=== PATIENT | male | born 1960 | race Caucasian/White ===

== ENCOUNTER 2018-07-13 17:10 | Inpatient (IN) ==
[2018-07-13] MEDS ORDERED: Morphine Sulfate Inj 2 MG/ML Vial IV.PUSH ONE (21:10)
--- NOTE | 2018-07-13 21:24 | ED ---
HPI General Chief complaint: Back Pain/Injury Stated complaint: back pain Time Seen by Provider: 07/13/18 20:59 History of Present Illness HPI narrative: 57-year-old male presents for evaluation of low back pain and urinary retention. He reports a long-standing history of peripheral neuropathy in the lower extremities for which he is prescribed gabapentin. Over the past several months she has developed worsening pain in his lower back which radiates into the left hip/leg. He had an MRI of the lumbar spine in February which revealed abnormality in the marrow of the left ilium and sacrum concerning for metastatic disease with unknown primary origin. He was seen by oncologist Dr. De Jesus earlier this month and underwent bone marrow biopsy of the abnormality. 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 He has a follow-up appointment with the oncologist on July 18 to discuss results. He reports over the past week he has developed new urinary retention. He reports that initially had some dribbling and then was unable to urinate at all. He was seen at [facility] 2 days ago and had a Rosas catheter placed. He presents today because he has worsening lower back pain over the past day. Pain is aching, constant, not alleviated with use of gabapentin and ibuprofen. He denies any new saddle anesthesia or new of weakness in the legs. He denies any new incontinence of stool. Reports that his last bowel movement was 2 days ago. He has no other complaints. Related Data Home Medications Medication Instructions Recorded Confirmed diazepam 2 mg PO DAILY 07/14/18 07/14/18 gabapentin 900 mg PO TID 07/14/18 07/14/18 hydrocodone-acetaminophen 1 tab PO Q4-6H PRN 07/14/18 07/14/18 phenazopyridine [Pyridium] 200 mg PO TID 07/14/18 07/14/18 Allergies Allergy/AdvReac Type Severity Reaction Status Date / Time VOLTA Allergy Intermediate ITCHING Uncoded 07/13/18 17:48 Review of Systems ROS: all other systems reviewed are negative Exam Narrative Exam Narrative: GENERAL: This is a thin male who appears uncomfortable on examination. SKIN: Warm and dry. HEAD: Atraumatic. Normocephalic. EYES: Pupils equal and round. No scleral icterus. No injection or drainage. ENT: No nasal bleeding or discharge. Mucous membranes pink and moist. NECK: Trachea midline. No JVD. CARDIOVASCULAR: Regular rate and rhythm. No murmur appreciated. RESPIRATORY: No accessory muscle use. Clear to auscultation. Breath sounds equal bilaterally. GASTROINTESTINAL: Abdomen soft, non-tender, nondistended. Hepatic and splenic margins not palpable. Rosas catheter is in place. Rectal examination reveals normal anal sphincter tone, somewhat prominent prostate. Nontender. MUSCULOSKELETAL: No obvious deformities. There is tenderness to palpation to the lumbar spine. 5 out of 5 muscle strength in lower extremities bilaterally. NEUROLOGICAL: Awake and alert. No obvious cranial nerve deficits. Motor grossly within normal limits. Normal speech. Course Initial Documented Vital Signs Temperature 98.0 F 07/13/18 17:41 Pulse Rate 93 H 07/13/18 17:41 Respiratory Rate 20 07/13/18 17:41 Blood Pressure 127/75 07/13/18 17:41 Pulse Oximetry 97 07/13/18 17:41 Last Documented Vital Signs Temperature 98.6 F 07/18/18 04:26 Pulse Rate 88 07/18/18 04:26 Respiratory Rate 17 07/18/18 06:41 Blood Pressure 112/74 07/18/18 04:26 Pulse Oximetry 95 07/18/18 04:26 Medical Decision Making BEV Attestation BEV supervised visit: Yes Attestation: I, Dr. Sauer, have reviewed the advance practice practitioner's documentation and am in agreement, met with the patient face to face, made the diagnosis, and the medical decision making was done by me. *My assessment and Findings: 57-year-old male with diagnosis of likely prostate cancer and back pain with urinary retention. MRI has been ordered to rule out cauda equina. He will be admitted to the hospital for further management. MDM Narrative Medical decision making narrative: Given the patient's worsening back pain and now acute urinary retention, an MRI of the lumbar spine has been ordered. Lab work, urinalysis has been ordered. The patient will be given IV analgesics. labwork imaging studies have been reviewed. MRI results were discussed with the neurosurgeon environmental issues instructor Dr. Cisneros who would like MRIs of the cervical and thoracic spine performed, agrees with admission for oncology consultation and he will be happy to consult as well. Patient has persistent pain despite use of morphine, additional analgesics have been ordered. The patient's urinalysis was positive for nitrites, he will be given a dose of Rocephin. Medical Screen Exam Complete: Yes Emergency Medical Condition: Yes Differential Diagnosis Differential Diagnosis: Metastatic carcinoma versus chronic back pain versus cauda equina syndrome versus conus medullaris versus prostatitis versus obstructive uropathy Lab Data Result diagrams: 07/15/18 07:40 07/15/18 07:40 Lab Results 07/13/18 07/13/18 07/13/18 Range/Units 21:49 21:49 23:35 WBC 7.4 (4.0-11.0) th/mm3 RBC 4.20 L (4.50-5.90) mil/mm3 Hgb 13.1 (13.0-17.0) gm/dL Hct 38.0 L (39.0-51.0) % MCV 90.5 (80.0-100.0) fL MCH 31.1 (27.0-34.0) pg MCHC 34.4 (32.0-36.0) % RDW 15.2 (11.6-17.2) % Plt Count 225 (150-450) th/mm3 MPV 7.0 (7.0-11.0) fL Neut % (Auto) 67.1 (16.0-70.0) % Lymph % (Auto) 22.8 (9.0-44.0) % [place] % (Auto) 5.4 (0.0-8.0) % Eos % (Auto) 4.0 (0.0-4.0) % Baso % (Auto) 0.7 (0.0-2.0) % Neut # (Auto) 5.0 (1.8-7.7) th/mm3 Lymph # (Auto) 1.7 (1.0-4.8) th/mm3 [place] # (Auto) 0.4 (0.0-0.9) th/mm3 Eos # (Auto) 0.3 (0.0-0.4) th/mm3 Baso # (Auto) 0.0 (0.0-0.2) th/mm3 WBC Differential . Differential Comment Auto diff final PT 10.4 (9.8-11.6) sec INR 1.0 Ratio APTT 24.5 (24.3-30.1) sec Sodium 143 (136-145) meq/L Potassium 3.9 (3.5-5.1) meq/L Chloride 109 H (98-107) meq/L Carbon Dioxide 26.8 (21.0-32.0) meq/L Anion Gap 7 (5-15) meq/L BUN 16 (7-18) mg/dL Creatinine 0.90 (0.60-1.30) mg/dL Estimated GFR 87 L (>89) mL/min Random Glucose 93 (74-106) mg/dL Calcium 8.7 (8.5-10.1) mg/dL Total Bilirubin 0.2 (0.2-1.0) mg/dL AST 14 L (15-37) U/L ALT 18 (12-78) U/L Alkaline Phosphatase 221 H (45-117) U/L Total Protein 6.8 (6.4-8.2) g/dL Albumin 3.2 L (3.4-5.0) g/dL Urine Color (Yellw/Straw) Urine Clarity (Clear) Urine pH (5.0-8.5) Ur Specific [place] (1.002-1.035) Urine Protein (Neg-Trace) mg/dL Urine Glucose (UA) (Negative) mg/dL Urine Ketones (Negative) mg/dL Urine Occult Blood (Negative) Urine Nitrate (Negative) Urine Bilirubin (Negative) Urine Urobilinogen (Less than 2) mg/dL Ur Leukocyte Esterase (Negative) Urine RBC (0-3) /hpf Urine WBC (0-5) /hpf Ur Squamous Epith Cells (0-5) /hpf Urine Bacteria (None) /hpf Micro UA Comment Urine Culture Comments Nasal Screen MRSA (PCR) (Negative) 07/13/18 07/15/18 07/15/18 Range/Units 23:50 07:40 07:40 WBC 5.1 (4.0-11.0) th/mm3 RBC 4.10 L (4.50-5.90) mil/mm3 Hgb 12.5 L (13.0-17.0) gm/dL Hct 37.4 L (39.0-51.0) % MCV 91.2 (80.0-100.0) fL MCH 30.6 (27.0-34.0) pg MCHC 33.5 (32.0-36.0) % RDW 14.7 (11.6-17.2) % Plt Count 219 (150-450) th/mm3 MPV 6.6 L (7.0-11.0) fL Neut % (Auto) 57.2 (16.0-70.0) % Lymph % (Auto) 31.3 (9.0-44.0) % [place] % (Auto) 6.4 (0.0-8.0) % Eos % (Auto) 4.6 H (0.0-4.0) % Baso % (Auto) 0.5 (0.0-2.0) % Neut # (Auto) 2.9 (1.8-7.7) th/mm3 Lymph # (Auto) 1.6 (1.0-4.8) th/mm3 [place] # (Auto) 0.3 (0.0-0.9) th/mm3 Eos # (Auto) 0.2 (0.0-0.4) th/mm3 Baso # (Auto) 0.0 (0.0-0.2) th/mm3 WBC Differential . Differential Comment Auto diff final PT (9.8-11.6) sec INR Ratio APTT (24.3-30.1) sec Sodium 142 (136-145) meq/L Potassium 4.0 (3.5-5.1) meq/L Chloride 108 H (98-107) meq/L Carbon Dioxide 27.2 (21.0-32.0) meq/L Anion Gap 7 (5-15) meq/L BUN 12 (7-18) mg/dL Creatinine 0.84 (0.60-1.30) mg/dL Estimated GFR Greater than 89 (>89) mL/min Random Glucose 96 (74-106) mg/dL Calcium 8.4 L (8.5-10.1) mg/dL Total Bilirubin 0.2 (0.2-1.0) mg/dL AST 12 L (15-37) U/L ALT 15 (12-78) U/L Alkaline Phosphatase 199 H (45-117) U/L Total Protein 6.3 L (6.4-8.2) g/dL Albumin 2.8 L (3.4-5.0) g/dL Urine Color [place] (Yellw/Straw) Urine Clarity Clear (Clear) Urine pH 6.0 (5.0-8.5) Ur Specific [place] 1.014 (1.002-1.035) Urine Protein Negative (Neg-Trace) mg/dL Urine Glucose (UA) Negative (Negative) mg/dL Urine Ketones Negative (Negative) mg/dL Urine Occult Blood Moderate H (Negative) Urine Nitrate Positive H (Negative) Urine Bilirubin Negative (Negative) Urine Urobilinogen 4 or greater (Less than 2) mg/dL Ur Leukocyte Esterase Negative (Negative) Urine RBC 21 H (0-3) /hpf Urine WBC 7 H (0-5) /hpf Ur Squamous Epith Cells <1 (0-5) /hpf Urine Bacteria Rare H (None) /hpf Micro UA Comment Cath-culture ind Urine Culture Comments Cath-cult indicated Nasal Screen MRSA (PCR) (Negative) 07/17/18 Range/Units 12:56 WBC (4.0-11.0) th/mm3 RBC (4.50-5.90) mil/mm3 Hgb (13.0-17.0) gm/dL Hct (39.0-51.0) % MCV (80.0-100.0) fL MCH (27.0-34.0) pg MCHC (32.0-36.0) % RDW (11.6-17.2) % Plt Count (150-450) th/mm3 MPV (7.0-11.0) fL Neut % (Auto) (16.0-70.0) % Lymph % (Auto) (9.0-44.0) % [place] % (Auto) (0.0-8.0) % Eos % (Auto) (0.0-4.0) % Baso % (Auto) (0.0-2.0) % Neut # (Auto) (1.8-7.7) th/mm3 Lymph # (Auto) (1.0-4.8) th/mm3 [place] # (Auto) (0.0-0.9) th/mm3 Eos # (Auto) (0.0-0.4) th/mm3 Baso # (Auto) (0.0-0.2) th/mm3 WBC Differential Differential Comment PT (9.8-11.6) sec INR Ratio APTT (24.3-30.1) sec Sodium (136-145) meq/L Potassium (3.5-5.1) meq/L Chloride (98-107) meq/L Carbon Dioxide (21.0-32.0) meq/L Anion Gap (5-15) meq/L BUN (7-18) mg/dL Creatinine (0.60-1.30) mg/dL Estimated GFR (>89) mL/min Random Glucose (74-106) mg/dL Calcium (8.5-10.1) mg/dL Total Bilirubin (0.2-1.0) mg/dL AST (15-37) U/L ALT (12-78) U/L Alkaline Phosphatase (45-117) U/L Total Protein (6.4-8.2) g/dL Albumin (3.4-5.0) g/dL Urine Color (Yellw/Straw) Urine Clarity (Clear) Urine pH (5.0-8.5) Ur Specific [place] (1.002-1.035) Urine Protein (Neg-Trace) mg/dL Urine Glucose (UA) (Negative) mg/dL Urine Ketones (Negative) mg/dL Urine Occult Blood (Negative) Urine Nitrate (Negative) Urine Bilirubin (Negative) Urine Urobilinogen (Less than 2) mg/dL Ur Leukocyte Esterase (Negative) Urine RBC (0-3) /hpf Urine WBC (0-5) /hpf Ur Squamous Epith Cells (0-5) /hpf Urine Bacteria (None) /hpf Micro UA Comment Urine Culture Comments Nasal Screen MRSA (PCR) Not detected (Negative) Imaging Data Radiologist's impression: Lumbar Spine MRI 07/13/18 21:08 CONCLUSION: 1. Progression of bone lesions including lesions at the bilateral iliac bones, T12, L5, S1, and S2 levels. Metastatic lesions need to be considered. The patient has underwent bone biopsy. 2. Minimal central disc protrusions at the L3-L4 and L4-L5 levels without significant stenosis. 3. Decreased signal in the disc with the exception of the L5-S1 level consistent with some degree of desiccation. Abdomen/Pelvis CT 07/14/18 00:00 CONCLUSION: 1. Distended stomach. 2. 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 Chest CT 07/14/18 00:00 CONCLUSION: 1. Stable CT examination of the chest. No interval change from 05/22/2018. 2. Specifically, no evidence for metastatic disease in the thorax. 3. Biapical paraseptal emphysema and groundglass opacities in the lower lobes bilaterally likely reflecting atelectasis. Cervical Spine MRI 07/14/18 01:16 CONCLUSION: 1. Multilevel degenerative findings of the cervical spine with mild central canal narrowing at C4-5, C5-6, and C6-7. No evidence of spinal cord deformity. 2. No evidence of metastatic disease in the cervical region. Thoracic Spine MRI 07/14/18 01:16 CONCLUSION: 1. Mild degenerative findings of the thoracic spine. 2. No evidence of metastatic disease in the thoracic spine. 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 Fracture of the posterior left ilium which may reflect insufficiency fracture. Discharge Plan Discharge Disposition Patient Disposition: 30 Still Patient Discharge Condition Condition: Stable Discharge Details Diagnosis: Bony metastasis, Intractable back pain, Acute urinary retention Physicians Team ED Provider: Mila Sauer ED Midlevel Provider: Simone Sinha Primary Care Provider: NON STAFF,PROVIDER Attending Provider: Brandy Warren Other Providers: Josi Wilson ; Kosta Cisneros ; [facility], Insurance ; Oswald Esquivel ; Winter De Jesus Status ED Status: Left Department Discharge Information Discharge Date/Time: 07/14/18 02:05
[2018-07-13 22:13] LABS: Alanine Aminotransferase 18 U/L (12-78); Albumin 3.2 g/dL (3.4-5.0); Anion Gap 7 meq/L (5-15); Aspartate Aminotransferase 14 U/L (15-37); Blood Urea Nitrogen 16 mg/dL (7-18); Calcium 8.7 mg/dL (8.5-10.1); Carbon Dioxide 26.8 meq/L (21.0-32.0); Chloride 109 meq/L (98-107); Glomerular Filtration Rate 87 mL/min (>89); Glucose,Random 93 mg/dL (74-106); Potassium 3.9 meq/L (3.5-5.1); Sodium 143 meq/L (136-145)
[2018-07-13 22:15] LABS: Alkaline Phosphatase 221 U/L (45-117); Total Protein 6.8 g/dL (6.4-8.2)
[2018-07-13 22:19] LABS: Baso % (Auto) 0.7 % (0.0-2.0); Eos # (Auto) 0.3 th/mm3 (0.0-0.4); Hemoglobin 13.1 gm/dL (13.0-17.0); Lymph # (Auto) 1.7 th/mm3 (1.0-4.8); Lymph % (Auto) 22.8 % (9.0-44.0); Mean Corpuscular HGB Conc 34.4 % (32.0-36.0); Mean Corpuscular Hemoglobin 31.1 pg (27.0-34.0); Mean Corpuscular Volume 90.5 fL (80.0-100.0); Mono # (Auto) 0.4 th/mm3 (0.0-0.9); Mono % (Auto) 5.4 % (0.0-8.0); Neut % (Auto) 67.1 % (16.0-70.0); Platelet Count 225 th/mm3 (150-450); Red Cell Distribution Width 15.2 % (11.6-17.2); White Blood Count 7.4 th/mm3 (4.0-11.0)
[2018-07-13] MEDS ORDERED: Gadobutrol PF 7.5 MMOL/7.5 ML Vial (for RAD) IV.SIG ONE (23:11)
--- NOTE | 2018-07-13 23:42 | MR ---
EXAM DATE: 07/13/2018 11:18 PM EDT AGE/SEX: 57 years / Male INDICATIONS: Pain. Possible prostate cancer. CLINICAL DATA: This is the patient's initial encounter. Patient reports that signs and symptoms have been present for 2 months and indicates a pain score of 8/10. MEDICAL/SURGICAL HISTORY: . Skin cancer. . Hernia sx. COMPARISON: [facility], MR LUMBAR SPINE W/O CONTRAST, 03/08/2018. [facility], CT NEEDLE BIOPSY BONE MARROW, 07/05/2018. [facility], CT ABDOMEN AND PELVIS W/ CONTRAST, 05/22/2018. [facility], CT NEEDLE BIOPSY BONE SUPERFICIAL, 07/05/2018. . TECHNIQUE: Multiplanar, multisequence MRI examination of the lumbar spine was performed without and with 6 ml Gadavist (gadobutrol) contrast as a single exam dose. FINDINGS: The most caudal-appearing lumbar vertebra is numbered as L5. Vertebra: There is abnormal signal seen throughout the visualized sacrum. This appears to have progr essed since the prior exam. On the prior exam, there is abnormal signal in the inferior aspect of S2 and at the visualized portion of the S3 level. Now the S1 level and entire S2 levels are involved. S3 is not included on the current study. There are focal lesions involving the posterior iliac bones bi laterally being more prominent on the left. There are new focal bone lesion seen at the T12 vertebral body and 2 lesions seen at the L5 vertebral bodies. There is a lesion involving the left L5 pedicle. These were not present on the prior exam. There are prominent Schmorl's nodes at the anterior superi or aspect of L3, L4 and L5. There is decreased signal within the discs with the exception of the L5-S 1 level. Conus: Normal level and configuration. Post Contrast: No abnormal areas of contrast enhancement are seen. T12-L1: The thecal sac has a normal diameter. No evidence of disc bulge or protrusion. The neural foramina are patent bilaterally. L1-L2: The thecal sac has a normal diameter. No evidence of disc bulge or protrusion. The neural foramina are patent bilaterally. L2-L3: The thecal sac has a normal diameter. No evidence of disc bulge or protrusion. The neural foramina are patent bilaterally. L3-L4: The thecal sac has a normal diameter. There is a minimal central disc protrusion seen on th e axial images without significant stenosis. The neural foramina are patent bilaterally. L4-L5: The thecal sac has a normal diameter. There is a minimal central disc protrusion without si gnificant stenosis. The neural foramina are patent bilaterally. L5-S1: The thecal sac has a normal diameter. No evidence of disc bulge or protrusion. The neural foramina are patent bilaterally. There is mild facet hypertrophy. CONCLUSION: 1. Progression of bone lesions including lesions at the bilateral iliac bones, T12, L5, S1, and S2 l evels. Metastatic lesions need to be considered. The patient has underwent bone biopsy. 2. Minimal central disc protrusions at the L3-L4 and L4-L5 levels without significant stenosis. 3. Decreased signal in the disc with the exception of the L5-S1 level consistent with some degree of desiccation. Electronically signed by: Olegario Vargas MD 07/13/2018 11:40 PM EDT
[2018-07-14 00:11] LABS: Bacteria,Urine Rare /hpf; Bilirubin,Urine Negative (Negative); Clarity,Urine Clear (Clear); Color,Urine Amber (Yellw/Straw); Glucose,Urine (UA) Negative (Negative); Leukocyte Esterase,Urine Negative (Negative); Nitrite,Urine Positive (Negative); Specific Gravity,Urine 1.014 (1.002-1.035); Squamous Epithelial Cell,Urine <1 /hpf (0-5); Urobilinogen,Urine 4 or Greater mg/dL (Less than 2)
[2018-07-14 00:12] LABS: Activated Partial Thrombo Time 24.5 sec (24.3-30.1); Prothrombin Time 10.4 sec (9.8-11.6)
[2018-07-14] MEDS ORDERED: HYDROmorphone PF Inj 0.5 MG/0.5 ML Syringe IV.PUSH STA (01:18)
[2018-07-14] MEDS ORDERED: Acetaminophen 325 MG Tablet PO PRN (01:29)
[2018-07-14] MEDS ORDERED: Bisacodyl 10 MG Supp RECTAL PRN (01:29)
[2018-07-14] MEDS ORDERED: Temazepam 15 MG Capsule PO PRN (01:29)
[2018-07-14] MEDS: diazePAM 5 MG Tablet PO PRN (02:10)
[2018-07-14] MEDS: Sod Chloride 0.9% Inj 1,000 ML IV.CONT SCH ×3 (02:39→22:39)
--- NOTE | 2018-07-14 02:41 | P.HPIM ---
History of Present Illness Primary Care Physician: PROVIDER NON STAFF History of Present Illness: Is a 57-year-old male with a PMH of Prostate CA and Peripheral Neuropathy who presented to the ER w/ complaints of severe back pain. States pain has been ongoing for several months, now more severe over the last 2-3 days in addition to urinary retention. Was seen at 2 days ago for urinary retention, s/p Rosas placement and was d/c'd home. Follows w/ Dr. De Jesus, PSA 150, MRI w/ abnormal marrow signal left posterior iliac wing and sacrum suspicious for metastatic disease, CT Abd/Pelvis 06/21/18 w/ progression to right medial acetabulum, left sacrum, coccyx and portions of posterior iliac wing. S/p Bone Marrow and Ilial Biopsy 07/05/18, Pathology Report showing metastatic prostate adenocarcinoma. On arrival, BP 127/75, HR 93, O2 sat 97% on RA, Afebrile. CBC unremarkable. INR 1.0. Chemistry essentially unremarkable. UA positive for UTI. MRI L-spine with progression of bone lesions including lesions at bilateral iliac bones, T12, L5, S1 and S2 and multiple levels of disc protrusion. Dr. Cisneros consulted, recommended further eval w/ MRI C/T-Spine. - Diagnosis (1) Intractable back pain (2) Prostate cancer (3) UTI (urinary tract infection) Inpatient Certification: I certify that the inpatient services were ordered in accordance with Medicare regulations governing the order. This includes certification that hospital inpatient services are reasonable and necessary and in the case of services not specified as inpatient-only under 42 CFR 419.22(n), that they are appropriately provided as inpatient services in accordance to with the 2-midnight benchmark under 43 CFR 412.3(e) Review of Systems PAST FAMILY HISTORY: Reviewed. No h/o DM or CAD All other systems reviewed negative except as stated in HPI PMFSH - History History Provided By: Patient - Medical History Medical History: Medical History (Last Updated 07/13/18 @ 22:43 by Taylor Hunter) Colon polyps Degenerative disc disease Peripheral neuropathy - Surgical History Surgical History: Surgical History (Last Updated 07/05/18 @ 07:45 by Yolande Amaya RN) History of hernia repair - Tobacco History Second Hand Smoke Exposure: Yes Tobacco Use In Past 30 Days: No Smoking Status: Current every day smoker Tobacco Type: Cigarettes - Alcohol History How Often Do You Have a Drink Containing Alcohol: Monthly or less - Substance Use History Substance History: No History of Abuse - Travel History Recent Travel in the [place] Within the Last 8 Weeks: No Recent Travel Out of the Country Within the Last 8 Weeks: No - Immunization History Tetanus Immunization: <5 Years Hx Influenza Vaccine This Season: No Medications and Allergies Active Medications: Active Medications Acetaminophen (Tylenol) 650 mg PO Q4H PRN PRN Reason: Temp > 100.4 Hydrocodone Bitart/Acetaminophen (Drifting 5/325) 1 tab PO Q4H PRN PRN Reason: PAIN 3-5 Al Hydroxide/Mg Hydroxide (Milk Of Magnesia Liq) 30 ml PO Q12H PRN PRN Reason: Mild Constipation Bisacodyl (Dulcolax Supp) 10 mg RECTAL DAILY PRN PRN Reason: SEVERE CONSITIPATION Diazepam (Valium) 5 mg PO Q8H PRN PRN Reason: MUSCLE SPASM Last Admin: 07/14/18 02:10 Dose: 5 mg Gabapentin (Neurontin) 900 mg PO TID MERRITT Gabapentin (Neurontin) 300 mg PO TID MERRITT Hydromorphone HCl (Dilaudid Pf Inj) 1 mg IV.PUSH Q4H PRN PRN Reason: PAIN 6-10 Ceftriaxone Sodium 1,000 mg/ (Sodium Chloride) 100 mls @ 200 mls/hr IV.SIG Q24H MERRITT Sodium Chloride (Ns Inj) 1,000 mls @ 100 mls/hr IV.CONT .Q10H MERRITT Lactulose (Lactulose Liq) 30 ml PO DAILY PRN PRN Reason: SEVERE CONSITIPATION Ondansetron HCl (Zofran Inj) 4 mg IV.PUSH Q6H PRN PRN Reason: NAUSEA OR VOMITING Phenazopyridine HCl (Pyridium) 200 mg PO TID MERRITT Senna/Docusate Sodium (Destinee-Colace) 1 tab PO BID MERRITT Sennosides (Senokot) 17.2 mg PO Q12H PRN PRN Reason: Moderate Constipation Sodium Chloride (Ns Flush) 2 ml IV.FLUSH PRN PRN PRN Reason: FLUSH AFTER USING IV ACCESS Temazepam (Restoril) 15 mg PO HS PRN PRN Reason: INSOMNIA Allergies Allergy/AdvReac Type Severity Reaction Status Date / Time VOLTA Allergy Intermediate ITCHING Uncoded 07/13/18 17:48 Home Medications Medication Instructions Recorded Confirmed Type diazepam 2 mg PO DAILY 07/14/18 07/14/18 History gabapentin 900 mg PO TID 07/14/18 07/14/18 History hydrocodone-acetaminophen 1 tab PO Q4-6H PRN 07/14/18 07/14/18 History phenazopyridine [Pyridium] 200 mg PO TID 07/14/18 07/14/18 History Exam Vital signs: Vital Signs 07/13/18 17:41 Temperature 98.0 F Pulse Rate 93 H Respiratory Rate 20 Blood Pressure 127/75 Pulse Oximetry 97 Intake & Output 07/13/18 07/13/18 07/14/18 06:59 18:59 06:59 Output Total 300 / 300 Balance -300 / -300 Weight 60.328 kg Output: Urine Amount (Catheter) 300 / 300 Indwelling Urethral Catheter 300 / 300 Narrative: PE: GENERAL: Middle-aged white male in moderate to severe distress due to pain, appears very uncomfortable HEENT: PERRLA, EOMI. No scleral icterus or conjunctival pallor. No lid lag or facial droop. CARDIOVASCULAR: Regular rate and rhythm. No obvious murmurs to auscultation. No chest tenderness to palpation. RESPIRATORY: No obvious rhonchi or wheezing. Clear to auscultation. Breath sounds equal bilaterally. GASTROINTESTINAL: Abdomen soft, non-tender, nondistended. BS normal. Rosas in place. MUSCULOSKELETAL: Extremities without clubbing, cyanosis, or edema. No obvious deformities. NEUROLOGICAL: Awake, alert and oriented x4. No focal neurologic deficits. Moving both upper and lower extremities spontaneously. Results - Labs CBC & Chem 7: 07/13/18 21:49 07/13/18 21:49 Labs: Short CBC 07/13/18 Range/Units 21:49 WBC 7.4 (4.0-11.0) th/mm3 Hgb 13.1 (13.0-17.0) gm/dL Hct 38.0 L (39.0-51.0) % Plt Count 225 (150-450) th/mm3 BMP 07/13/18 21:49 Sodium 143 Potassium 3.9 Chloride 109 H Carbon Dioxide 26.8 BUN 16 Creatinine 0.90 Calcium 8.7 Liver Function 07/13/18 Range/Units 21:49 Total Bilirubin 0.2 (0.2-1.0) mg/dL AST 14 L (15-37) U/L ALT 18 (12-78) U/L Alkaline Phosphatase 221 H (45-117) U/L Albumin 3.2 L (3.4-5.0) g/dL Urine 07/13/18 Range/Units 23:50 Urine Color Emelia (Yellw/Straw) Urine Clarity Clear (Clear) Urine pH 6.0 (5.0-8.5) Ur Specific [place] 1.014 (1.002-1.035) Urine Protein Negative (Neg-Trace) mg/dL Urine Glucose (UA) Negative (Negative) mg/dL - Imaging Impressions Lumbar Spine MRI 07/13/18 21:08 CONCLUSION: 1. Progression of bone lesions including lesions at the bilateral iliac bones, T12, L5, S1, and S2 levels. Metastatic lesions need to be considered. The patient has underwent bone biopsy. 2. Minimal central disc protrusions at the L3-L4 and L4-L5 levels without significant stenosis. 3. Decreased signal in the disc with the exception of the L5-S1 level consistent with some degree of desiccation. Caprini VTE Risk Assessment Caprini VTE Risk Assessment: No/Low Risk (score <= 1) Caprini Risk Assessment Model: Point Value = 1 Point Value = 2 Point Value = 3 Point Value = 5 Age 41-60 Minor surgery BMI > 25 kg/m2 Swollen legs Varicose veins or History of unexplained or recurrent spontaneous Oral contraceptives or hormone replacement Sepsis (< 1 month) Serious lung disease, including pneumonia (< 1 month) Abnormal pulmonary function Acute myocardial infarction Congestive heart failure (< 1 month) History of inflammatory bowel disease Medical patient at bed rest Age 61-74 Arthroscopic surgery Major open surgery (> 45 min) Laparoscopic surgery (> 45 min) Malignancy Confined to bed (> 72 hours) Immobilizing plaster cast Central venous access Age >= 75 History of VTE Family history of VTE Factor V Leiden Prothrombin [id number] Lupus anticoagulant Anticardiolipin antibodies Elevated serum homocysteine Heparin-induced thrombocytopenia Other congenital or acquired thrombophilia Stroke (< 1 month) Elective arthroplasty Hip, pelvis, or leg fracture Acute spinal cord injury (< 1 month) Prophylaxis Regimen: Total Risk Factor Score Risk Level Prophylaxis Regimen 0-1 Low Early ambulation 2 Moderate Order ONE of the following: *Sequential Compression Device (SCD) *Heparin 5000 units SQ BID 3-4 Higher Order ONE of the following medications: *Heparin 5000 units SQ TID *Enoxaparin/Lovenox 40 mg SQ daily (WT < 150 kg, CrCl > 30 mL/min) *Enoxaparin/Lovenox 30 mg SQ daily (WT < 150 kg, CrCl > 10-29 mL/min) *Enoxaparin/Lovenox 30 mg SQ BID (WT < 150 kg, CrCl > 30 mL/min) AND/OR *Sequential Compression Device (SCD) 5 or more Highest Order ONE of the following medications: *Heparin 5000 units SQ TID (Preferred with Epidurals) *Enoxaparin/Lovenox 40 mg SQ daily (WT < 150 kg, CrCl > 30 mL/min) *Enoxaparin/Lovenox 30 mg SQ daily (WT < 150 kg, CrCl > 10-29 mL/min) *Enoxaparin/Lovenox 30 mg SQ BID (WT < 150 kg, CrCl > 30 mL/min) AND *Sequential Compression Device (SCD) Assessment and Plan - Assessment (1) Intractable back pain Code(s): M54.9 - Dorsalgia, unspecified Status: Acute (2) Prostate cancer Code(s): C61 - Malignant neoplasm of prostate Status: Acute (3) UTI (urinary tract infection) Code(s): N39.0 - Urinary tract infection, site not specified Status: Acute - Plan A/P: 1. Prostate CA: w/ Metastatic Disease, s/p BM and Ilial biopsy 07/05/18 w/ pathology showing Metastatic Prostate Adenocarcinoma, following w/ Dr. De Jesus, will consult for further evaluation/recommendations. 2. Intractable Pain: secondary to above, MRI L-Spine w/ progression of bone lesions bilateral iliac bones, T12, L5, S1 and S2. Dr. Cisneros consulted, recommendation for MRI C/T-Spine, currently pending. Continue w/ analgesics, Valium prn for muscle spasm, Neurontin tid for radiculopathy. 3. UTI: U/a w/ UTI, continue IV Rocephin, IVF for hydration, follow up cultures. 4. DVT Prophylaxis: SCD/Teds 5. Social work for d/c planning as needed 6. Case discussed w/ ER physician at length, labs/records/imaging reviewed by me.
[2018-07-14] MEDS: HYDROmorphone PF Inj 2 MG/ML Vial IV.PUSH PRN ×4 (03:22→19:37)
[2018-07-14] MEDS ORDERED: Gadobutrol PF 7.5 MMOL/7.5 ML Vial (for RAD) IV.SIG ONE (08:22)
--- NOTE | 2018-07-14 08:22 | P.CONNS ---
History of Present Illness Service: Neurosurgery Primary Care Provider: PROVIDER NON STAFF Chief Complaint: Back pain History of Present Illness: 57yoM with back pain with recent diagnosis of prostate cancer, urinary retention x 2 visits to in last week. Bony mets detected on MRI L-spine but none in the canal. He also has involvement of bilateral sacrum. No weakness, but some pain when arising to stand. PMFSH - History History Provided By: Patient - Medical History Medical History: Medical History (Last Reviewed 07/14/18 @ 06:34 by Cassy German) Colon polyps Degenerative disc disease Peripheral neuropathy - Surgical History Surgical History: Surgical History (Last Reviewed 07/14/18 @ 06:34 by Cassy German) History of hernia repair - Tobacco History Second Hand Smoke Exposure: Yes Tobacco Use In Past 30 Days: Yes Smoking Status: Current every day smoker Tobacco Type: Cigarettes - Alcohol History How Often Do You Have a Drink Containing Alcohol: Never - Substance Use History Substance History: No History of Abuse - Travel History Recent Travel in the [place] Within the Last 8 Weeks: No Recent Travel Out of the Country Within the Last 8 Weeks: No - Immunization History Tetanus Immunization: <5 Years Hx Influenza Vaccine This Season: No Medications and Allergies Active Medications: Active Medications Acetaminophen (Tylenol) 650 mg PO Q4H PRN PRN Reason: Temp > 100.4 Hydrocodone Bitart/Acetaminophen ([place] 5/325) 1 tab PO Q4H PRN PRN Reason: PAIN 3-5 Al Hydroxide/Mg Hydroxide (Milk Of Magnzane Liq) 30 ml PO Q12H PRN PRN Reason: Mild Constipation Bisacodyl (Dulcolax Supp) 10 mg RECTAL DAILY PRN PRN Reason: SEVERE CONSITIPATION Diazepam (Valium) 5 mg PO Q8H PRN PRN Reason: MUSCLE SPASM Last Admin: 07/14/18 02:10 Dose: 5 mg Gabapentin (Neurontin) 900 mg PO TID MERRITT Gabapentin (Neurontin) 300 mg PO TID MERRITT Hydromorphone HCl (Dilaudid Pf Inj) 1 mg IV.PUSH Q4H PRN PRN Reason: PAIN 6-10 Last Admin: 07/14/18 07:22 Dose: 1 mg Ceftriaxone Sodium 1,000 mg/ (Sodium Chloride) 100 mls @ 200 mls/hr IV.SIG Q24H MERRITT Sodium Chloride (Ns Inj) 1,000 mls @ 100 mls/hr IV.CONT .Q10H MERRITT Last Admin: 07/14/18 02:39 Dose: 100 mls/hr Lactulose (Lactulose Liq) 30 ml PO DAILY PRN PRN Reason: SEVERE CONSITIPATION Ondansetron HCl (Zofran Inj) 4 mg IV.PUSH Q6H PRN PRN Reason: NAUSEA OR VOMITING Phenazopyridine HCl (Pyridium) 200 mg PO TID MERRITT Senna/Docusate Sodium (Destinee-Colace) 1 tab PO BID MERRITT Sennosides (Senokot) 17.2 mg PO Q12H PRN PRN Reason: Moderate Constipation Sodium Chloride (Ns Flush) 2 ml IV.FLUSH PRN PRN PRN Reason: FLUSH AFTER USING IV ACCESS Temazepam (Restoril) 15 mg PO HS PRN PRN Reason: INSOMNIA Last Admin: 07/14/18 02:40 Dose: 15 mg Allergies Allergy/AdvReac Type Severity Reaction Status Date / Time VOLTA Allergy Intermediate ITCHING Uncoded 07/13/18 17:48 Home Medications Medication Instructions Recorded Confirmed Type diazepam 2 mg PO DAILY 07/14/18 07/14/18 History gabapentin 900 mg PO TID 07/14/18 07/14/18 History hydrocodone-acetaminophen 1 tab PO Q4-6H PRN 07/14/18 07/14/18 History phenazopyridine [Pyridium] 200 mg PO TID 07/14/18 07/14/18 History Exam Vital signs: Vital Signs 07/13/18 17:41 07/14/18 04:00 07/14/18 07:17 Temperature 98.0 F 97.8 F 98.7 F Pulse Rate 93 H 79 74 Respiratory Rate 20 16 18 Blood Pressure 127/75 120/72 130/83 Pulse Oximetry 97 94 L 98 Intake & Output 07/13/18 07/14/18 07/14/18 18:59 06:59 18:59 Intake Total 580 / 580 Output Total 1100 / 1100 Balance -520 / -520 Weight 60.328 kg 60.328 kg Intake: IV 100 / 100 Rocephin Inj 1,000 MG In NS Inj 100 / 100 100 ML @ 200 mls/hr IV.SIG ONCE ONE Rx#:[id number] Oral 480 / 480 Output: Urine 800 / 800 Urine Amount (Catheter) 300 / 300 Indwelling Urethral Catheter 300 / 300 Other: Weight On Admission 60.33 kg Narrative: A&O x 3 CN II-XII intact Motor 5/5 UE and LE Reflexes symmetric physiologic Results - Laboratory Findings CBC and BMP: 07/13/18 21:49 07/13/18 21:49 Abnormal lab findings: Abnormal Labs 07/13/18 07/13/18 07/13/18 21:49 21:49 23:50 RBC 4.20 L Hct 38.0 L Chloride 109 H Estimated GFR 87 L AST 14 L Alkaline Phosphatase 221 H Albumin 3.2 L Urine Occult Blood Moderate H Urine Nitrate Positive H Urine RBC 21 H Urine WBC 7 H Urine Bacteria Rare H Assessment and Plan - Plan 57yoM with newly diagnosed prostate cancer and spine/ilium mets. Recommend MRI C/T-spine. L-spine xrays ap/lat/flex/ex. No role for surgery in the spine. Urinary retention is not due to spinal canal compromise, may be due to prostate issue. Oncology and Radiation Oncology.
--- NOTE | 2018-07-14 08:33 | MR ---
EXAM DATE: 07/14/2018 8:25 AM EDT AGE/SEX: 57 years / Male INDICATIONS: Pain. Possible prostate cancer. CLINICAL DATA: This is the patient's initial encounter. Patient reports that signs and symptoms have been present for 2 days and indicates a pain score of 6/10. MEDICAL/SURGICAL HISTORY: Carcinoma, skin cancer. Inguinal hernia repair. COMPARISON: No prior exams available for comparison. TECHNIQUE: Multiplanar, multisequence MRI of the thoracic spine was performed without and with 6cc m l Gadavist (gadobutrol) contrast as a single exam dose. FINDINGS: Vertebrae: Schmorl's nodes at multiple levels with mild associated endplate bony changes. Bone marro w signal is otherwise homogeneous and within normal limits. Alignment: Normal. Cord: Normal position and configuration. Post Contrast: No abnormal areas of enhancement are seen in the cord, dural or paraspinal regions. T1-T2: The thecal sac has a normal diameter. No evidence of disc bulge or protrusion. T2-T3: The thecal sac has a normal diameter. No evidence of disc bulge or protrusion. T3-T4: The thecal sac has a normal diameter. No evidence of disc bulge or protrusion. T4-T5: The thecal sac has a normal diameter. No evidence of disc bulge or protrusion. T5-T6: The thecal sac has a normal diameter. No evidence of disc bulge or protrusion. T6-T7: Small central disc protrusion deforming the anterior thecal sac. Central canal diameter withi n normal limits. Neural foraminal diameters within normal limits. T7-T8: The thecal sac has a normal diameter. No evidence of disc bulge or protrusion. T8-T9: The thecal sac has a normal diameter. No evidence of disc bulge or protrusion. T9-T10: The thecal sac has a normal diameter. No evidence of disc bulge or protrusion. T10-T11: The thecal sac has a normal diameter. No evidence of disc bulge or protrusion. T11-T12: The thecal sac has a normal diameter. No evidence of disc bulge or protrusion. T12-L1: The thecal sac has a normal diameter. No evidence of disc bulge or protrusion. CONCLUSION: 1. Mild degenerative findings of the thoracic spine. 2. No evidence of metastatic disease in the thoracic spine. Electronically signed by: Terrell Clarke MD 07/14/2018 8:32 AM EDT
--- NOTE | 2018-07-14 08:49 | MR ---
EXAM DATE: 07/14/2018 8:32 AM EDT AGE/SEX: 57 years / Male INDICATIONS: Pain. Possible prostate cancer. CLINICAL DATA: This is the patient's initial encounter. Patient reports that signs and symptoms have been present for 2 days and indicates a pain score of 6/10. MEDICAL/SURGICAL HISTORY: Carcinoma, skin cancer. Inguinal hernia repair. COMPARISON: No prior exams available for comparison. TECHNIQUE: Multiplanar, multisequence MRI examination of the cervical spine was performed without an d with 6cc ml Gadavist (gadobutrol) contrast as a single exam dose. FINDINGS: Vertebrae: Normal vertebral body height. Homogeneous marrow signal. Alignment: Normal. Cord: Normal configuration and signal. Post Fossa: The cerebellar tonsils are normal in position. Post Contrast: No abnormal areas of enhancement are seen. C2-C3: Bilateral facet arthrosis. Central canal diameter within normal limits. Neural foraminal diam eters within normal limits. C3-C4: Broad-based disc osteophyte complex and bilateral facet arthrosis. Central canal diameter wit hin normal limits. Neural foraminal diameters within normal limits. C4-C5: Broad-based disc osteophyte complex and bilateral facet arthrosis. Mild left neural foraminal narrowing. Effacement of the CSF anteriorly. Posteriorly CSF remains visible. No spinal cord deformi ty. C5-C6: Broad-based disc osteophyte complex. Effacement of CSF anteriorly and posteriorly. No spinal cord deformity. Mild left neural foraminal narrowing. C6-C7: Broad-based disc osteophyte complex. Effacement of the CSF anteriorly. Posteriorly CSF remain s visible. No spinal cord deformity. Neural foraminal diameters within normal limits. C7-T1: Macro normal diameter CONCLUSION: 1. Multilevel degenerative findings of the cervical spine with mild central canal narrowing at C4-5, C5-6, and C6-7. No evidence of spinal cord deformity. 2. No evidence of metastatic disease in the cervical region. Electronically signed by: Terrell Clarke MD 07/14/2018 8:48 AM EDT
[2018-07-14] MEDS ORDERED: Gabapentin 300 MG Capsule PO SCH (09:00)
[2018-07-14] MEDS ORDERED: diazePAM 2 MG Tablet PO SCH (09:00)
[2018-07-14] MEDS ORDERED: oxyCODONE/Acetaminophen 10/325 Tablet PO PRN (09:42)
[2018-07-14] MEDS ORDERED: Morphine Sulfate 30 MG SR Tablet PO ONE (09:43)
[2018-07-14] MEDS ORDERED: HYDROmorphone PF Inj 2 MG/ML Vial IV.PUSH ONE (09:43)
[2018-07-14] MEDS ORDERED: Naloxone Inj 0.4 MG/ML Vial IV.PUSH PRN (09:44)
[2018-07-14] MEDS: Gabapentin 300 MG Capsule PO SCH ×3 (09:50→19:46)
[2018-07-14] MEDS: Senna/Docusate Sodium 8.6/50 MG Tablet PO SCH ×2 (09:50→22:39)
--- NOTE | 2018-07-14 13:39 | P.PNNS ---
Subjective Interval history: 57 yo M with PMH of prostate CA admitted for urinary retention. Neurosurgery consulted for possible surgical cause of urinary retention Physical Exam Vital signs: Vital Signs 07/13/18 17:41 07/14/18 04:00 07/14/18 07:17 Temperature 98.0 F 97.8 F 98.7 F Pulse Rate 93 H 79 74 Respiratory Rate 20 16 18 Blood Pressure 127/75 120/72 130/83 Pulse Oximetry 97 94 L 98 07/14/18 09:03 07/14/18 12:03 Temperature 96.8 F L 98.6 F Pulse Rate 72 76 Respiratory Rate 20 20 Blood Pressure 189/62 H 150/90 H Pulse Oximetry 96 96 Intake & Output 07/13/18 07/14/18 07/14/18 18:59 06:59 18:59 Intake Total 580 / 580 881 / 881 Output Total 1100 / 1100 Balance -520 / -520 881 / 881 Weight 60.328 kg 60.328 kg Intake: IV 100 / 100 881 / 881 NS Inj 1,000 ML @ 100 mls/hr IV 881 / 881 .CONT .Q10H MERRITT Rx#:[id number] Rocephin Inj 1,000 MG In NS Inj 100 / 100 100 ML @ 200 mls/hr IV.SIG ONCE ONE Rx#:[id number] Oral 480 / 480 Output: Urine 800 / 800 Urine Amount (Catheter) 300 / 300 Indwelling Urethral Catheter 300 / 300 Other: Weight On Admission 60.33 kg Narrative: E4 Aox 3 follows commands x4 5/5 strength in the upper and lower extremities sensation to light touch intact in the LEs denies bb incontinence - Urinary Catheter Management Indwelling Urethral Catheter Cath placed during this visit: no Assessment and Plan - Plan 57yoM with newly diagnosed prostate cancer and spine/ilium mets. -Reviewed MR imaging: patient with vertebral body lesions only. therefore no neurosurgical cause for urinary retention -pain control for spine lesions -recommend consultation to radiation oncology for palliative spine radiation for pain control if fails medical measures -no follow up needed with neurosurgery, please contact with any questions
[2018-07-14] MEDS ORDERED: Diatrizoate Meglum/Diatrizoate Sod Liq 9 ML UDC PO ONE (14:15)
--- NOTE | 2018-07-14 15:27 | MB ---
cc: Josi Wilson MD DATE: 07/14/2018 CHIEF COMPLAINT: 1. Severe back pain. 2. Urinary retention. HISTORY OF PRESENT ILLNESS: Mr. Craig is a 57-year-old gentleman with a history of chronic lower extremity peripheral neuropathy, degenerative disk disease, chronic lower back pain, sciatica, who presented to the emergency room with progressively worsening urinary retention and pain. He has been seen in clinic by my colleague, Dr. De Jesus. CT scan of the chest, abdomen and pelvis from 05/22/2018 showed new patchy areas of sclerosis involving the right medial acetabulum, left side of the sacrum, coccyx and portions of the posterior iliac wings. CT scan of the chest with hyperinflation with underlying emphysema and bullous change. The heart and the mediastinal structures are within normal limits. He underwent a CT-guided biopsy and a CT-guided bone marrow biopsy with pathology results from the right ileum biopsy showing features consistent with metastatic prostate adenocarcinoma and bone marrow biopsy with features consistent with marrow involvement by metastatic prostate adenocarcinoma. MRI of the cervical spine with multilevel degenerative findings of the cervical spine with mild central canal narrowing at C4-C5, C5-C6 and C6-C7. No evidence of spinal cord deformity. No evidence of metastatic disease in the cervical region. CT scan of the thoracic spine with mild degenerative findings of the thoracic spine, no evidence of metastatic disease in the thoracic spine. CT scan of the lumbar spine with progression of bone lesions including lesions at the bilateral iliac bones, T12, L5, S1 and S2 levels, minimal central disk protrusions at L3-L4, L4-L5 without significant stenosis. Decreased signal in the disk with the exception of L5-S1, consistent with some degree of desiccation. He has been consulted on by the neurosurgery service, who reported no role for surgery in the spine. Urinary retention is not due to canal compromise. Recommended further evaluation of the prostate. REVIEW OF SYSTEMS: Positive for bilateral lower extremity pain. PAST MEDICAL HISTORY: Chronic lower extremity neuropathy, degenerative disk disease, metastatic prostate cancer. PAST SURGICAL HISTORY: Colonoscopy, hernia repair, bone biopsies. Family history Alzheimers No family history of prostate cancer ALLERGIES: ERYTHROMYCIN. HOSPITAL MEDICATIONS: Include: 1. Hydrocodone. 2. Tylenol. 3. Gabapentin. 4. Dilaudid. 5. Long-acting morphine 30 mg twice daily. 6. Zofran. 7. Percocet. 8. Restoril. 9. Docusate. 10. Senna. SOCIAL HISTORY: He has a good support system with his family. He has a history of smoking. H and his family have an unfortunate situation where they report that they are being evicted from their apartment. PHYSICAL EXAMINATION: VITAL SIGNS: Temperature 98.6, pulse 76, respiratory rate 20, blood pressure 150/90. GENERAL: Thin, chronically ill-appearing man, in no distress. HEENT: Head is normocephalic, atraumatic. Eyes: PERRLA. EOMI. Oropharynx clear. NECK: Supple. No palpable lymphadenopathy. ABDOMEN: Suprapubic tenderness to palpation. CARDIOVASCULAR: Regular rate and rhythm. RESPIRATORY: Clear to auscultation bilaterally. NEUROLOGIC: Grossly nonfocal. PSYCHIATRIC: Appropriate mood and affect. ASSESSMENT AND PLAN: 1. Newly diagnosed metastatic prostate cancer. Metastatic disease in the bones. Will obtain CT scan of the chest, abdomen and pelvis as well as bone scan for baseline imaging prior to initation of treatment. Most recent imaging performed 2 months ago. Will check PSA. We will initiate patient on treatment with bicalutamide. In the outpatient setting, he will need to be initiated on leuprolide injections and he will need to discuss abiraterone versus docetaxel with his primary oncologist, Dr. De Jesus. 2. Pain. Per patient long standing pain due to degenerative disease of the spine that has worsened with now bony metastatic lesions. The patient is currently on long-acting morphine twice a day with as needed Percocet and as needed IV Dilaudid. Increasing pain medications to have good control of malignant pain. 3. Urinary retention. Likely due to prostate cancer compressing prostatic urethra. Urinary catheter in place. Once catheter removed could consider finasteride. Josi Wilson MD JINA/ct , 01:19 PM , 01:29 PM MTDNancy
--- NOTE | 2018-07-14 17:48 | CT ---
EXAM DATE: 07/14/2018 5:42 PM EDT AGE/SEX: 57 years / Male INDICATIONS: Prostate cancer; possible metastatic disease. CLINICAL DATA: This is the patient's initial encounter. Patient reports that signs and symptoms have been present for 1 day and indicates a pain score of 0/10. MEDICAL/SURGICAL HISTORY: Carcinoma, prostatic. colon polyps, neuropathy None. RADIATION DOSE: 6.79 CTDI (mGy) ; Combined studies COMPARISON: [facility], CT CHEST W/O CONTRAST, 05/22/2018. . TECHNIQUE: Multiple contiguous axial images were obtained through the chest during bolus infusion of 97 ml Omnipaque 350 (iohexol) nonionic water-soluble contrast as a cumulative dose for multiple exa ms. Images were obtained in suspended respiration using multiple row detector helical technique. U sing automated exposure control and adjustment of the mA and/or kV according to patient size, radiati on dose was kept as low as reasonably achievable to obtain optimal diagnostic quality images. DICOM format image data is available electronically for review and comparison. FINDINGS: Lung: Groundglass opacities in the lower lobes bilaterally. Biapical paraseptal emphysema. Pleura: No effusion, significant pleural thickening or pneumothorax. Mediastinum: Heart is unremarkable without pericardial effusion.No evidence of mediastinal or hilar adenopathy. Osseous Structures: No abnormal focal lytic or blastic bony lesions. Soft Tissues: Soft tissues are unremarkable. No significant axillary adenopathy. Other: Visulaized upper abdomen is unremarkable. CONCLUSION: 1. Stable CT examination of the chest. No interval change from 05/22/2018. 2. Specifically, no evidence for metastatic disease in the thorax. 3. Biapical paraseptal emphysema and groundglass opacities in the lower lobes bilaterally likely ref lecting atelectasis. Electronically signed by: Dharmesh Victor MD 07/14/2018 5:46 PM EDT
--- NOTE | 2018-07-14 17:50 | CT ---
EXAM DATE: 07/14/2018 5:40 PM EDT AGE/SEX: 57 years / Male INDICATIONS: Difficulty urinating; prostate cancer. Evaluate for metastatic disease. CLINICAL DATA: This is the patient's initial encounter. Patient reports that signs and symptoms have been present for 1 day and indicates a pain score of 0/10. MEDICAL/SURGICAL HISTORY: Carcinoma, prostatic. colon polyps, neuropathy None. ORAL CONTRAST: No oral contrast ingested. RADIATION DOSE: 6.79 CTDI (mGy) ; Combined studies COMPARISON: [facility], CT ABDOMEN AND PELVIS W/ CONTRAST, 05/22/2018. [facility], MR ABDOMEN W/ AND W/O CONTR AST, 12/20/2017. . TECHNIQUE: Multiple contiguous axial images were obtained through the abdomen and pelvis following b olus infusion of 97 ml Omnipaque 350 (iohexol) nonionic water-soluble contrast as a cumulative dose for multiple exams. No oral contrast ingested. Using automated exposure control and adjustment of t he mA and/or kV according to patient size, radiation dose was kept as low as reasonably achievable to obtain optimal diagnostic quality images. DICOM format image data is available electronically for r eview and comparison. FINDINGS: Lower Lungs: The visualized lower lungs are clear. Liver: The liver has a homogeneous density without space-occupying lesion. There is no dilation of th e biliary tree. No calcified gallstones. Spleen: Homogeneous density without enlargement. Pancreas: Unremarkable without mass or calcification. Stable 6 mm cyst in the head of the pancreas. Kidneys: Normal in size and shape. No evidence of mass or hydronephrosis. Adrenal Glands: Unremarkable. Aorta: The aorta and proximal iliac vessels are grossly unremarkable without aneurysmal dilation. Bowel/Mesentery: Prominent distention of the stomach with mixture of contrast and particulate matter within the lumen. No dilated loops of small bowel. Moderate amount of stool throughout the colon. Or al contrast passes through two thirds of the small bowel. Abdominal Wall: Intact. Retroperitoneum: No evidence of adenopathy in the retrocrural, para-aortic, or deep pelvic regions. Bladder: Rosas catheter. Reproductive Organs: Enlarged prostate dense on the base of the urinary bladder. Inguinal: The inguinal region is unremarkable without evidence of adenopathy. Bony Structures: Scattered areas of sclerosis throughout the pelvis involving central sacrum, left s acral ala, medial ilium and right posterior acetabular region, suggesting osteosclerotic metastatic d isease CONCLUSION: 1. Distended stomach. 2. 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 Electronically signed by: Bony Estrada MD 07/14/2018 5:49 PM EDT
[2018-07-14] MEDS: Morphine Sulfate 30 MG SR Tablet PO SCH (22:39)
[2018-07-15 08:41] LABS: Baso % (Auto) 0.5 % (0.0-2.0); Eos # (Auto) 0.2 th/mm3 (0.0-0.4); Eos % (Auto) 4.6 % (0.0-4.0); Hematocrit 37.4 % (39.0-51.0); Hemoglobin 12.5 gm/dL (13.0-17.0); Lymph # (Auto) 1.6 th/mm3 (1.0-4.8); Lymph % (Auto) 31.3 % (9.0-44.0); Mean Corpuscular HGB Conc 33.5 % (32.0-36.0); Mean Corpuscular Hemoglobin 30.6 pg (27.0-34.0); Mean Corpuscular Volume 91.2 fL (80.0-100.0); Mean Platelet Volume 6.6 fL (7.0-11.0); Mono # (Auto) 0.3 th/mm3 (0.0-0.9); Mono % (Auto) 6.4 % (0.0-8.0); Neut # (Auto) 2.9 th/mm3 (1.8-7.7); Neut % (Auto) 57.2 % (16.0-70.0); Platelet Count 219 th/mm3 (150-450); Red Cell Distribution Width 14.7 % (11.6-17.2); White Blood Count 5.1 th/mm3 (4.0-11.0)
[2018-07-15 08:57] LABS: Alanine Aminotransferase 15 U/L (12-78); Albumin 2.8 g/dL (3.4-5.0); Anion Gap 7 meq/L (5-15); Aspartate Aminotransferase 12 U/L (15-37); Blood Urea Nitrogen 12 mg/dL (7-18); Calcium 8.4 mg/dL (8.5-10.1); Carbon Dioxide 27.2 meq/L (21.0-32.0); Chloride 108 meq/L (98-107); Glomerular Filtration Rate Greater Than 89 mL/min (>89); Glucose,Random 96 mg/dL (74-106); Sodium 142 meq/L (136-145)
[2018-07-15 09:00] LABS: Alkaline Phosphatase 199 U/L (45-117); Total Protein 6.3 g/dL (6.4-8.2)
[2018-07-15] MEDS: Senna/Docusate Sodium 8.6/50 MG Tablet PO SCH ×2 (09:09→21:57)
[2018-07-15] MEDS: Morphine Sulfate 30 MG SR Tablet PO SCH ×3 (09:09→21:56)
[2018-07-15] MEDS: Gabapentin 300 MG Capsule PO SCH ×3 (09:09→18:26)
[2018-07-15] MEDS: HYDROmorphone PF Inj 2 MG/ML Vial IV.PUSH PRN (09:15)
[2018-07-15] MEDS: Sod Chloride 0.9% Inj 1,000 ML IV.CONT SCH ×2 (09:20→16:45)
--- NOTE | 2018-07-15 09:54 | P.PNONC ---
Subjective Interval history: Patient resting comfortably in bed. Reports pain to his buttocks that radiates down to mid thigh, "mostly controlled with pain meds" Questions concerning disease and chemo treatments answered. Patient notified of his CT results. Urinary catheter in place. Objective Vital Signs/Intake & Output: Vital Signs 07/14/18 12:03 07/14/18 16:07 07/14/18 20:00 Temperature 98.6 F 98.2 F 98.5 F Pulse Rate 76 68 82 Respiratory Rate 18 Blood Pressure 150/90 H 110/75 121/80 Pulse Oximetry 96 96 95 07/15/18 00:00 07/15/18 04:00 07/15/18 08:00 Temperature 98.2 F 98.7 F 97.8 F Pulse Rate 81 77 71 Respiratory Rate 18 16 Blood Pressure 120/80 110/69 119/86 Pulse Oximetry 96 97 94 L Intake & Output 07/14/18 07/15/18 07/15/18 18:59 06:59 18:59 Intake Total 881 / 881 1100 / 1100 1000 / 1000 Balance 881 / 881 1100 / 1100 1000 / 1000 Intake: IV 881 / 881 1100 / 1100 1000 / 1000 NS Inj 1,000 ML @ 100 mls/hr IV 881 / 881 1000 / 1000 1000 / 1000 .CONT .Q10H MERRITT Rx#:[id number] Rocephin Inj 1,000 MG In NS Inj 100 / 100 100 ML @ 200 mls/hr IV.SIG Q24H MERRITT Rx#:[id number] Result Diagrams: 07/15/18 07:40 07/15/18 07:40 Laboratory Results: Laboratory Results - last 24 hr 07/15/18 07/15/18 07:40 07:40 WBC 5.1 RBC 4.10 L Hgb 12.5 L Hct 37.4 L MCV 91.2 MCH 30.6 MCHC 33.5 RDW 14.7 Plt Count 219 MPV 6.6 L Neut % (Auto) 57.2 Lymph % (Auto) 31.3 Geary % (Auto) 6.4 Eos % (Auto) 4.6 H Baso % (Auto) 0.5 Neut # (Auto) 2.9 Lymph # (Auto) 1.6 Geary # (Auto) 0.3 Eos # (Auto) 0.2 Baso # (Auto) 0.0 WBC Differential . Differential Comment Auto diff final Sodium 142 Potassium 4.0 Chloride 108 H Carbon Dioxide 27.2 Anion Gap 7 BUN 12 Creatinine 0.84 Estimated GFR Greater than 89 Random Glucose 96 Calcium 8.4 L Total Bilirubin 0.2 AST 12 L ALT 15 Alkaline Phosphatase 199 H Total Protein 6.3 L Albumin 2.8 L Culture Results: Microbiology 07/13/18 23:50 Urine Culture - Preliminary Clean Catch Urine Results Pending Imaging Studies: Impressions Abdomen/Pelvis CT 07/14/18 00:00 CONCLUSION: 1. Distended stomach. 2. 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 Chest CT 07/14/18 00:00 CONCLUSION: 1. Stable CT examination of the chest. No interval change from 05/22/2018. 2. Specifically, no evidence for metastatic disease in the thorax. 3. Biapical paraseptal emphysema and groundglass opacities in the lower lobes bilaterally likely reflecting atelectasis. Medications: Active Medications Generic Name Dose Route Start Last Admin Trade Name Freq PRN Reason Stop Dose Admin Bicalutamide 50 mg 07/15/18 09:00 07/15/18 09:11 Casodex PO 50 mg DAILY MERRITT Administration Diazepam 5 mg 07/14/18 01:58 07/14/18 02:10 Valium PO 5 mg Q8H PRN Administration MUSCLE SPASM Gabapentin 900 mg 07/14/18 09:00 07/15/18 09:09 Neurontin PO 900 mg TID MERRITT Administration Hydromorphone HCl 1 mg 07/14/18 01:27 07/15/18 09:15 Dilaudid Pf Inj IV.PUSH 1 mg Q4H PRN Administration BREAKTHROUGH PAIN Ceftriaxone Sodium 1,000 mg/ 100 mls @ 200 mls/hr 07/15/18 06:00 07/15/18 05: 55 Sodium Chloride IV.SIG Infused Q24H MERRITT Infusion Sodium Chloride 1,000 mls @ 100 mls/hr 07/14/18 01:30 07/15/18 09:20 Ns Inj IV.CONT 100 mls/hr .Q10H MERRITT Administration Morphine Sulfate 30 mg 07/14/18 21:00 07/15/18 09:09 Oramorph Sr PO 30 mg Q12HR MERRITT Administration Nicotine 1 patch 07/15/18 09:00 07/15/18 09:10 Habitrol 14 Mg Patch.24 Hr T-DERMAL 1 patch DAILY MERRITT Administration Oxycodone/Acetaminophen 1 tab 07/14/18 09:42 07/15/18 00:33 Percocet 10/325 Mg PO 1 tab Q4H PRN Administration Pain 7 to 10 Patch Removal 1 each 07/15/18 09:00 07/15/18 09:21 Remove Old Patch T-DERMAL 1 each DAILY MERRITT Administration Phenazopyridine HCl 200 mg 07/14/18 09:00 07/15/18 09:09 Pyridium PO 200 mg TID MERRITT Administration Senna/Docusate Sodium 1 tab 07/14/18 09:00 07/15/18 09:09 Destinee-Colace PO 1 tab BID MERRITT Administration Sodium Chloride 2 ml 07/13/18 21:08 07/14/18 19:38 Ns Flush IV.FLUSH 2 ml PRN PRN Administration FLUSH AFTER USING IV ACCESS Temazepam 15 mg 07/14/18 01:29 07/14/18 02:40 Restoril PO 15 mg HS PRN Administration INSOMNIA Objective Remarks: GENERAL: Thin, frail middle-aged male patient, in no distress. SKIN: Warm and dry. Band-Aid to left cheek. HEAD: Normocephalic. EYES: No scleral icterus. No injection or drainage. NECK: Supple, trachea midline. CARDIOVASCULAR: Regular rate and rhythm without murmurs. RESPIRATORY: Breath sounds clear, equal bilaterally. Nonlabored. GASTROINTESTINAL: Abdomen firm, LLQ-RLQ tender, nondistended. +BS EXTREMITIES: No cyanosis, or edema. MUSCULOSKELETAL: Adequate muscle tone. NEUROLOGICAL: No obvious focal deficit. Awake, alert, and oriented x3. PSYCHIATRIC: Appropriate mood and affect; insight and judgment normal. Assessment/Plan - Plan This is a 57-year-old male patient, with a newly diagnosed metastatic prostate cancer, under the care of Dr. Cowart. He had a CT-guided right ilium bone marrow biopsy with pathology consistent with metastatic prostate adenocarcinoma and bone marrow biopsy with features consistent with marrow involvement of metastatic prostate adenocarcinoma. He presented this admission with progressive worsening urinary retention. Plan 1. Metastatic prostate cancer, started on Casodex. Treatment plan once discharged would be leuprolide injections and abiraterone or docetaxel, this will be decided by his primary oncologist. 2. Pain management, continue to monitor and treat as warranted 3. PSA pending. 4. CT thoracic spine, cervical spine, chest and abdomen were negative for metastatic disease. Abdominal CT revealed a 6 mm pancreatic cyst, unchanged since 2015. - Attending Statement The exam, history, and the medical decision-making described in the above note were completed with the assistance of the mid-level provider. I reviewed and agree with the findings presented. I attest that I had a [id number] encounter with the patient on the same day, and personally performed and documented my assessment and findings in the medical record. 57 yoM with metastatic prostate cancer. Started on bicalutamide therapy. Will need leuprolide/consideration of abiraterone/docetaxel in the outpatient setting. No spinal cord compromise. Pain due to bony metastatic lesions. Will consult radiation oncology team. continue with current pain medication regiement. Urinary retention, catheter in place.
--- NOTE | 2018-07-15 11:56 | P.PNIM ---
Subjective Interval history: Neurosurgical intervention is not indicated and thus is not an option for helping to improve his current pain. Pain appears to be related to metastatic prostate cancer. Further adjustment in patient's baseline pain treatment is discussed with the patient. Physical Exam Vital signs: Vital Signs 07/14/18 12:03 07/14/18 16:07 07/14/18 20:00 Temperature 98.6 F 98.2 F 98.5 F Pulse Rate 76 68 82 Respiratory Rate 20 18 Blood Pressure 150/90 H 110/75 121/80 Pulse Oximetry 96 96 95 07/15/18 00:00 07/15/18 04:00 07/15/18 08:00 Temperature 98.2 F 98.7 F 97.8 F Pulse Rate 81 77 71 Respiratory Rate 16 Blood Pressure 120/80 110/69 119/86 Pulse Oximetry 96 97 94 L 07/15/18 11:24 Temperature 98.2 F Pulse Rate 79 Respiratory Rate 16 Blood Pressure 122/80 Pulse Oximetry 99 Intake & Output 07/14/18 07/15/18 07/15/18 18:59 06:59 18:59 Intake Total 881 / 881 1100 / 1100 1000 / 1000 Balance 881 / 881 1100 / 1100 1000 / 1000 Intake: IV 881 / 881 1100 / 1100 1000 / 1000 NS Inj 1,000 ML @ 100 mls/hr IV 881 / 881 1000 / 1000 1000 / 1000 .CONT .Q10H MERRITT Rx#:[id number] Rocephin Inj 1,000 MG In NS Inj 100 / 100 100 ML @ 200 mls/hr IV.SIG Q24H MERRITT Rx#:[id number] Narrative: GENERAL: NAD, A&Ox3 HEAD: Normocephalic. NECK: Supple, trachea midline. No lymphadenopathy. EYES: No scleral icterus. No injection or drainage. CARDIOVASCULAR: Regular rate and rhythm without murmurs, gallops, or rubs. RESPIRATORY: Breath sounds equal bilaterally. No accessory muscle use. GASTROINTESTINAL: Abdomen soft, non-tender, nondistended. MUSCULOSKELETAL: No cyanosis, or edema. Decreased range of motion at back due to pain. SKIN: Warm and dry. NEURO: No focal neurological deficits. - Urinary Catheter Management Indwelling Urethral Catheter Cath placed during this visit: no Reason for continuing: Chronic Urinary Retention Results - Labs CBC & Chem 7: 07/15/18 07:40 07/15/18 07:40 Laboratory Results - last 24 hr 07/15/18 07/15/18 07:40 07:40 WBC 5.1 RBC 4.10 L Hgb 12.5 L Hct 37.4 L MCV 91.2 MCH 30.6 MCHC 33.5 RDW 14.7 Plt Count 219 MPV 6.6 L Neut % (Auto) 57.2 Lymph % (Auto) 31.3 Taylor % (Auto) 6.4 Eos % (Auto) 4.6 H Baso % (Auto) 0.5 Neut # (Auto) 2.9 Lymph # (Auto) 1.6 Taylor # (Auto) 0.3 Eos # (Auto) 0.2 Baso # (Auto) 0.0 WBC Differential . Differential Comment Auto diff final Sodium 142 Potassium 4.0 Chloride 108 H Carbon Dioxide 27.2 Anion Gap 7 BUN 12 Creatinine 0.84 Estimated GFR Greater than 89 Random Glucose 96 Calcium 8.4 L Total Bilirubin 0.2 AST 12 L ALT 15 Alkaline Phosphatase 199 H Total Protein 6.3 L Albumin 2.8 L Microbiology 07/13/18 23:50 Clean Catch Urine Urine Culture - Final No growth in 48 hours - Imaging Impressions Abdomen/Pelvis CT 07/14/18 00:00 CONCLUSION: 1. Distended stomach. 2. 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 Chest CT 07/14/18 00:00 CONCLUSION: 1. Stable CT examination of the chest. No interval change from 05/22/2018. 2. Specifically, no evidence for metastatic disease in the thorax. 3. Biapical paraseptal emphysema and groundglass opacities in the lower lobes bilaterally likely reflecting atelectasis. Assessment and Plan - Assessment (1) Intractable back pain Code(s): M54.9 - Dorsalgia, unspecified Status: Acute (2) Prostate cancer Code(s): C61 - Malignant neoplasm of prostate Status: Acute (3) UTI (urinary tract infection) Code(s): N39.0 - Urinary tract infection, site not specified Status: Acute - Plan 57-year-old male admitted secondary to severe lower back pain related to cancer Metastatic prostate cancer Metastatic disease to sacral, lumbar and thoracic spine Irretractable back pain, secondary to cancer No option/indication for neurosurgical intervention in the setting Pain control the patient's primary option Oxycodone increased MS Contin increased Monitor for improvement in pain status Urinary tract infection Continue Rocephin DVT prophylaxis SCDs
[2018-07-16] MEDS: Sod Chloride 0.9% Inj 1,000 ML IV.CONT SCH ×3 (01:14→18:03)
[2018-07-16] MEDS: diazePAM 5 MG Tablet PO PRN (01:14)
[2018-07-16] MEDS: Morphine Sulfate 30 MG SR Tablet PO SCH ×3 (05:35→22:07)
--- NOTE | 2018-07-16 09:46 | P.PNIM ---
Subjective Interval history: Patient reports the back pain is worse today because the bed is still soft. He states he was more comfortable with the previous bed with a firm mattress. Physical Exam Vital signs: Vital Signs 07/15/18 11:24 07/15/18 16:00 07/15/18 20:00 Temperature 98.2 F 97.6 F 98.1 F Pulse Rate 79 74 79 Respiratory Rate 16 16 22 Blood Pressure 122/80 138/86 119/79 Pulse Oximetry 99 95 94 L 07/15/18 22:51 07/15/18 23:07 07/16/18 00:03 Temperature 97.7 F Pulse Rate 75 73 Respiratory Rate 20 18 Blood Pressure 130/88 Pulse Oximetry 98 07/16/18 01:44 07/16/18 03:45 07/16/18 04:00 Temperature 97.9 F Pulse Rate 71 74 Respiratory Rate 18 18 Blood Pressure 127/93 H Pulse Oximetry 96 07/16/18 07:39 Temperature 97.8 F Pulse Rate 73 Respiratory Rate 20 Blood Pressure 141/87 H Pulse Oximetry 96 Intake & Output 07/15/18 07/16/18 07/16/18 18:59 06:59 18:59 Intake Total 1000 / 1000 1480 / 1480 100 / 100 Output Total 1200 / 1200 Balance 1000 / 1000 280 / 280 100 / 100 Weight 63 kg Intake: IV 1000 / 1000 1000 / 1000 100 / 100 NS Inj 1,000 ML @ 100 mls/hr IV 1000 / 1000 1000 / 1000 .CONT .Q10H MERRITT Rx#:[id number] Rocephin Inj 1,000 MG In NS Inj 100 / 100 100 ML @ 200 mls/hr IV.SIG Q24H MERRITT Rx#:[id number] Oral 480 / 480 Output: Urine Amount (Catheter) 1200 / 1200 Indwelling Urethral Catheter 1200 / 1200 Other: Date of Last Bowel Movement 07/11/18 Narrative: GENERAL: Patient appears older than stated age CARDIOVASCULAR: Regular rate and rhythm without murmurs, gallops, or rubs. RESPIRATORY: Breath sounds equal bilaterally. No accessory muscle use. GASTROINTESTINAL: Abdomen soft, non-tender, nondistended. MUSCULOSKELETAL: No cyanosis, or edema. leasing machine tender to palpation in the lumbar area. SKIN: Warm and dry. - Urinary Catheter Management Indwelling Urethral Catheter Cath placed during this visit: no Reason for continuing: Chronic Urinary Retention Results - Labs CBC & Chem 7: 07/15/18 07:40 07/15/18 07:40 Microbiology 07/13/18 23:50 Clean Catch Urine Urine Culture - Final No growth in 48 hours Assessment and Plan - Assessment (1) Intractable back pain Code(s): M54.9 - Dorsalgia, unspecified Status: Acute (2) Prostate cancer Code(s): C61 - Malignant neoplasm of prostate Status: Acute (3) UTI (urinary tract infection) Code(s): N39.0 - Urinary tract infection, site not specified Status: Acute - Plan 57-year-old male admitted secondary to severe lower back pain related to cancer Metastatic prostate cancer Metastatic disease to sacral, lumbar and thoracic spine Intractable back pain, secondary to cancer No option/indication for neurosurgical intervention in this setting Pain control the patient's primary option Radiation oncology consulted to consider palliative radiation. Continue oxycodone and MS Contin. Monitor for improvement in pain status We will ask nursing to change his bed to a firm mattress which he reports provided better relief. Bone scan per oncology. Abnormal urinalysis: Patient empirically treated with Rocephin. Urine cultures negative. Discontinue antibiotics Tobacco abuse: Patient counseled to quit. Nicotine patch DVT prophylaxis SCDs
[2018-07-16] MEDS: Senna/Docusate Sodium 8.6/50 MG Tablet PO SCH ×2 (09:55→20:21)
[2018-07-16] MEDS: Gabapentin 300 MG Capsule PO SCH ×3 (09:56→17:58)
--- NOTE | 2018-07-16 13:33 | NM ---
INDICATIONS: Metastatic disease. CLINICAL DATA: This is the patient's initial encounter. Patient reports that signs and symptoms have been present for 1 day and indicates a pain score of 6/10. MEDICAL/SURGICAL HISTORY: Carcinoma, prostatic. . Hernia repair. COMPARISON: [facility] – [place], CT ABDOMEN & PELVIS W CONTRAST, 07/14/2018. . TECHNIQUE: . . Whole body bone scan was performed at 2-3 hours. No correlative bone scan available for comparison. DOSE: 30 mCi Tc99m MDP IV FINDINGS: There is intense increased activity involving the sacral alar bilaterally as well as the posterior il ium and the right acetabulum characteristic of metastatic disease. Review of the CT scan demonstrates a nondisplaced fracture of the posterior left ilium. There are also findings of metastatic disease t o the transverse process and pedicle at L5 on the left. 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 Fracture of the posterior left ilium which may reflect insufficiency fracture. Electronically signed by: Abhijit Melara MD 07/16/2018 1:31 PM EDT
--- NOTE | 2018-07-16 18:04 | P.CON ---
History of Present Illness Service: Radiation oncology Consult date: 07/16/18 Requesting Physician: Josi Wilson Reason for Consult: Bony metastatic disease to the pelvis and lumbar spine Primary Care Provider: PROVIDER NON STAFF Chief Complaint: Back pain History of Present Illness: 57-year-old white male which presents into the hospital for urinary retention worsening back pain. From the records and my discussion with Dr. Wilson it appears that Dr. De Jesus has worked up the patient and he has been noted to have metastatic prostatic carcinoma. He was admitted for the above complaints. Patient has had imaging studies and a bone scan which are positive for metastatic disease to the lumbar spine sacral area and pelvis. Patient complains of severe pain and burning of the pelvic area, he says that he feels that his butt cheeks are on fire and he also complains of having weakness of the right or lower extremities which is not at the same time when he stands. A consult has been placed for evaluation regarding palliative or therapy for pain control. [facility] - History History Provided By: Patient - Medical History Medical History: Medical History (Last Reviewed 07/14/18 @ 06:34 by Cassy German) Colon polyps Degenerative disc disease Peripheral neuropathy - Surgical History Surgical History: Surgical History (Last Reviewed 07/14/18 @ 06:34 by Cassy German) History of hernia repair - Tobacco History Second Hand Smoke Exposure: Yes Tobacco Use In Past 30 Days: Yes Smoking Status: Current every day smoker Tobacco Type: Cigarettes - Alcohol History How Often Do You Have a Drink Containing Alcohol: Never - Substance Use History Substance History: No History of Abuse - Travel History Recent Travel in the [place] Within the Last 8 Weeks: No Recent Travel Out of the Country Within the Last 8 Weeks: No - Immunization History Tetanus Immunization: <5 Years Hx Influenza Vaccine This Season: No Medications and Allergies Active Medications: Active Medications Acetaminophen (Tylenol) 650 mg PO Q4H PRN PRN Reason: Temp > 100.4 Al Hydroxide/Mg Hydroxide (Milk Of Magnesia Liq) 30 ml PO Q12H PRN PRN Reason: Mild Constipation Bicalutamide (Casodex) 50 mg PO DAILY [facility] Last Admin: 07/16/18 16:49 Dose: Not Given Bisacodyl (Dulcolax Supp) 10 mg RECTAL DAILY PRN PRN Reason: SEVERE CONSITIPATION Diazepam (Valium) 5 mg PO Q8H PRN PRN Reason: MUSCLE SPASM Last Admin: 07/16/18 01:14 Dose: 5 mg Gabapentin (Neurontin) 900 mg PO TID [facility] Last Admin: 07/16/18 13:30 Dose: 900 mg Hydromorphone HCl (Dilaudid Pf Inj) 1 mg IV.PUSH Q4H PRN PRN Reason: BREAKTHROUGH PAIN Last Admin: 07/15/18 09:15 Dose: 1 mg Sodium Chloride (Ns Inj) 1,000 mls @ 100 mls/hr IV.CONT .Q10H [facility] Last Admin: 07/16/18 05:31 Dose: Not Given Lactulose (Lactulose Liq) 30 ml PO DAILY PRN PRN Reason: SEVERE CONSITIPATION Last Admin: 07/16/18 10:14 Dose: 30 ml Morphine Sulfate (Oramorph Sr) 30 mg PO Q8HR [facility] Last Admin: 07/16/18 13:30 Dose: 30 mg Naloxone HCl (Narcan Inj) 0.4 mg IV.PUSH Q2M PRN PRN Reason: Narcotic Overdose Nicotine (Habitrol 14 Mg Patch.24 Hr) 1 patch T-DERMAL DAILY [facility] Last Admin: 07/16/18 09:55 Dose: 1 patch Ondansetron HCl (Zofran Inj) 4 mg IV.PUSH Q6H PRN PRN Reason: NAUSEA OR VOMITING Oxycodone HCl (Roxicodone) 10 mg PO Q4H PRN PRN Reason: Pain 3 to 6 Last Admin: 07/16/18 01:14 Dose: 10 mg Oxycodone HCl (Roxicodone) 15 mg PO Q4H PRN PRN Reason: Pain 7 to 10 Last Admin: 07/16/18 09:54 Dose: 15 mg Patch Removal (Remove Old Patch) 1 each T-DERMAL DAILY [facility] Last Admin: 07/16/18 16:50 Dose: 1 each Phenazopyridine HCl (Pyridium) 200 mg PO TID [facility] Senna/Docusate Sodium (Destinee-Colace) 1 tab PO BID [facility] Last Admin: 07/16/18 09:55 Dose: 1 tab Sennosides (Senokot) 17.2 mg PO Q12H PRN PRN Reason: Moderate Constipation Sodium Chloride (Ns Flush) 2 ml IV.FLUSH PRN PRN PRN Reason: FLUSH AFTER USING IV ACCESS Last Admin: 07/14/18 19:38 Dose: 2 ml Temazepam (Restoril) 15 mg PO HS PRN PRN Reason: INSOMNIA Last Admin: 07/14/18 02:40 Dose: 15 mg Allergies Allergy/AdvReac Type Severity Reaction Status Date / Time VOLTA Allergy Intermediate ITCHING Uncoded 07/13/18 17:48 Home Medications Medication Instructions Recorded Confirmed Type diazepam 2 mg PO DAILY 07/14/18 07/14/18 History gabapentin 900 mg PO TID 07/14/18 07/14/18 History hydrocodone-acetaminophen 1 tab PO Q4-6H PRN 07/14/18 07/14/18 History phenazopyridine [Pyridium] 200 mg PO TID 07/14/18 07/14/18 History Physical Exam Vital signs: Vital Signs 07/15/18 20:00 07/15/18 22:51 07/15/18 23:07 Temperature 98.1 F 97.7 F Pulse Rate 79 75 73 Respiratory Rate 22 20 Blood Pressure 119/79 130/88 Pulse Oximetry 94 L 98 07/16/18 00:03 07/16/18 01:44 07/16/18 03:45 Temperature Pulse Rate 71 Respiratory Rate 18 18 Blood Pressure Pulse Oximetry 07/16/18 04:00 07/16/18 07:39 07/16/18 11:34 Temperature 97.9 F 97.8 F 98.3 F Pulse Rate 74 73 96 H Respiratory Rate 18 20 18 Blood Pressure 127/93 H 141/87 H 146/110 H Pulse Oximetry 96 96 97 07/16/18 17:23 Temperature 98.2 F Pulse Rate 77 Respiratory Rate 18 Blood Pressure 121/77 Pulse Oximetry 94 L Intake & Output 07/15/18 07/16/18 07/16/18 18:59 06:59 18:59 Intake Total 1000 / 1000 1480 / 1480 100 / 100 Output Total 1200 / 1200 1200 / 1200 Balance 1000 / 1000 280 / 280 -1100 / -1100 Weight 63 kg Intake: IV 1000 / 1000 1000 / 1000 100 / 100 NS Inj 1,000 ML @ 100 mls/hr IV 1000 / 1000 1000 / 1000 .CONT .Q10H [facility] Rx#:[id number] Rocephin Inj 1,000 MG In NS Inj 100 / 100 100 ML @ 200 mls/hr IV.SIG Q24H [facility] Rx#:[id number] Oral 480 / 480 Output: Urine 1200 / 1200 Urine Amount (Catheter) 1200 / 1200 Indwelling Urethral Catheter 1200 / 1200 Other: Date of Last Bowel Movement 07/11/18 - Constitutional mild distress, thin, cachectic, chronically ill appearing, cooperative - Routine HEENT Exam Head: Present: normocephalic Eye: Present: EOMI ENT: Present: mucous membranes moist, external ear normal - Routine Neck Exam Present: supple, trachea midline - Routine Respiratory Exam Present: distant breath sounds Comments: Auscultation bilateral lungs were clear to auscultation with decreased ventilatory respiratory effort - Routine Cardiovascular Exam Comments: Heart was regular in rate and rhythm with no murmurs - Routine Abdominal Exam Present: firm - Routine Exam Comments: No inguinal lymph nodes were detected bilaterally - Routine Extremities Exam Comments: No lower extremity edema detected bilaterally l - Routine Skin Exam Present: dry, lesions Comments: There is a lesion of the left lateral lip inferior nasal area which the patient says is positive for basal cell carcinoma. He had surgical resection of Mohs surgery and has recurred. - Routine Neurological Exam Present: alert, oriented X3, moving all extremities, normal tone, vision grossly intact, hearing grossly intact, normal speech Neurologic examination no motor function deficits were detected. Patient says that most of his problems are only when standing on his legs. On the bed the patient has no weakness of the lower extremities or upper extremities. No other neurological deficits were detected - Routine Psychiatric Exam Present: normal affect, normal thought process, cooperative, good insight, good judgment - Urinary Catheter Management Indwelling Urethral Catheter Cath placed during this visit: no Reason for continuing: Chronic Urinary Retention Assessment and Plan - Assessment (1) Bony metastasis Code(s): C79.51 - Secondary malignant neoplasm of bone Status: Acute (2) Intractable back pain Code(s): M54.9 - Dorsalgia, unspecified Status: Acute (3) Prostate cancer Code(s): C61 - Malignant neoplasm of prostate Status: Acute - Plan Assessment: 57-year-old white male with the diagnosis of metastatic prostatic carcinoma symptomatic in the lumbar spine and pelvic area. Patient been evaluated for palliative or therapy treatment options. Plan: I had extensive discussion with the patient his and his daughter in regards to his condition. I have discussed this case with Dr. Wilson today. I have evaluated her note from 07/14/2018, where she recommends a bone scan. I discussed with the patient the merits of radiation therapy, which in his case will be for palliation of pain and prevention of further pathological fractures. I discussed the side effects complications of radiotherapy. Side effects and complications include but limited to, weakness and fatigue, decreased blood counts, erythema the skin, necrosis of the skin, nausea and vomiting, bowel and bladder damage, bowel and bladder bleeding, bowel and bladder incontinence, bowel damage and perforation which lead to , hemorrhoidal flareup, kidney damage, nerve damage, bone damage and fracture, swelling of the lower extremities, loss of hair in the pelvic area which could be permanent, fistula formation between the prostate and the bladder and between the prostate and the rectum, incontinence, impotence that there is a question he is pseudo-was explained and wanted to move forward part of her therapy. I plan is to bring him down tomorrow for simulation treatment planning start radiation therapy as soon as possible. I advised the patient that for the basal cell carcinoma that he has on his left cheek since he has a recurrence and has failed surgical resection and most surgery that I would recommend he has radiation therapy to this area which I would recommend we do after he completes the palliative radiotherapy to the pelvic and lumbar spine area. He understood everything that was explained. All his questions were answered. Will move forward as above. Patient advised if I could be of any further assistance or to please let me know. I have independently reviewed the CT of the pelvis, bone scan, and MRI of the L spine. Dr. Wilson thank you very much for the referral of this patient and allowing me to participate in his care. Should you have any further questions concerns please do not hesitate to contact me.
--- NOTE | 2018-07-16 18:53 | P.PNONC ---
Subjective Interval history: Reports bowel movements a day. He still has back pain. He is getting used to the Rosas. Objective Vital Signs/Intake & Output: Vital Signs 07/15/18 20:00 07/15/18 22:51 07/15/18 23:07 Temperature 98.1 F 97.7 F Pulse Rate 79 75 73 Respiratory Rate 22 20 Blood Pressure 119/79 130/88 Pulse Oximetry 94 L 98 07/16/18 00:03 07/16/18 01:44 07/16/18 03:45 Temperature Pulse Rate 71 Respiratory Rate 18 18 Blood Pressure Pulse Oximetry 07/16/18 04:00 07/16/18 07:39 07/16/18 11:34 Temperature 97.9 F 97.8 F 98.3 F Pulse Rate 74 73 96 H Respiratory Rate 18 20 18 Blood Pressure 127/93 H 141/87 H 146/110 H Pulse Oximetry 96 96 97 07/16/18 17:23 Temperature 98.2 F Pulse Rate 77 Respiratory Rate 18 Blood Pressure 121/77 Pulse Oximetry 94 L Intake & Output 07/15/18 07/16/18 07/16/18 18:59 06:59 18:59 Intake Total 1000 / 1000 1480 / 1480 1100 / 1100 Output Total 1200 / 1200 1200 / 1200 Balance 1000 / 1000 280 / 280 -100 / -100 Weight 63 kg Intake: IV 1000 / 1000 1000 / 1000 1100 / 1100 NS Inj 1,000 ML @ 100 mls/hr IV 1000 / 1000 1000 / 1000 1000 / 1000 .CONT .Q10H [facility] Rx#:[id number] Rocephin Inj 1,000 MG In NS Inj 100 / 100 100 ML @ 200 mls/hr IV.SIG Q24H [facility] Rx#:[id number] Oral 480 / 480 Output: Urine 1200 / 1200 Urine Amount (Catheter) 1200 / 1200 Indwelling Urethral Catheter 1200 / 1200 Other: Date of Last Bowel Movement 07/11/18 Result Diagrams: 07/15/18 07:40 07/15/18 07:40 Culture Results: Microbiology 07/13/18 23:50 Urine Culture - Final Clean Catch Urine No growth in 48 hours Imaging Studies: Impressions Bone Scan Nuclear Medicine 07/16/18 00:00 CONCLUSION: 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 Fracture of the posterior left ilium which may reflect insufficiency fracture. Medications: Active Medications Generic Name Dose Route Start Last Admin Trade Name Freq PRN Reason Stop Dose Admin Bicalutamide 50 mg 07/15/18 09:00 07/16/18 16:49 Casodex PO Not Given DAILY [facility] Diazepam 5 mg 07/14/18 01:58 07/16/18 01:14 Valium PO 5 mg Q8H PRN Administration MUSCLE SPASM Gabapentin 900 mg 07/14/18 09:00 07/16/18 17:58 Neurontin PO 900 mg TID [facility] Administration Hydromorphone HCl 1 mg 07/14/18 01:27 07/15/18 09:15 Dilaudid Pf Inj IV.PUSH 1 mg Q4H PRN Administration BREAKTHROUGH PAIN Sodium Chloride 1,000 mls @ 100 mls/hr 07/14/18 01:30 07/16/18 18:03 Ns Inj IV.CONT 100 mls/hr .Q10H [facility] Administration Lactulose 30 ml 07/14/18 01:29 07/16/18 10:14 Lactulose Liq PO 30 ml DAILY PRN Administration SEVERE CONSITIPATION Morphine Sulfate 30 mg 07/15/18 14:00 07/16/18 13:30 Oramorph Sr PO 30 mg Q8HR [facility] Administration Nicotine 1 patch 07/15/18 09:00 07/16/18 09:55 Habitrol 14 Mg Patch.24 Hr T-DERMAL 1 patch DAILY [facility] Administration Oxycodone HCl 10 mg 07/15/18 11:51 07/16/18 01:14 Roxicodone PO 10 mg Q4H PRN Administration Pain 3 to 6 Oxycodone HCl 15 mg 07/15/18 11:51 07/16/18 17:59 Roxicodone PO 15 mg Q4H PRN Administration Pain 7 to 10 Patch Removal 1 each 07/15/18 09:00 07/16/18 16:50 Remove Old Patch T-DERMAL 1 each DAILY [facility] Administration Phenazopyridine HCl 200 mg 07/16/18 18:00 07/16/18 17:59 Pyridium PO 200 mg TID [facility] Administration Senna/Docusate Sodium 1 tab 07/14/18 09:00 07/16/18 09:55 Destinee-Colace PO 1 tab BID [facility] Administration Sodium Chloride 2 ml 07/13/18 21:08 07/14/18 19:38 Ns Flush IV.FLUSH 2 ml PRN PRN Administration FLUSH AFTER USING IV ACCESS Temazepam 15 mg 07/14/18 01:29 07/14/18 02:40 Restoril PO 15 mg HS PRN Administration INSOMNIA Objective Remarks: GENERAL: Cachectic man who looks older than stated age, well-developed patient. SKIN: Warm and dry. HEAD: Normocephalic. EYES: No scleral icterus. No injection or drainage. NECK: Supple, trachea midline. No JVD or lymphadenopathy. LYMPHATIC: No adenopathy. CARDIOVASCULAR: Regular rate and rhythm without murmurs. RESPIRATORY: Breath sounds equal bilaterally. No accessory muscle use. GASTROINTESTINAL: Abdomen soft, non-tender, nondistended. EXTREMITIES: No cyanosis, or edema. MUSCULOSKELETAL: Adequate muscle tone. NEUROLOGICAL: No obvious focal deficit. Awake, alert, and oriented x3. PSYCHIATRIC: Appropriate mood and affect; insight and judgment normal. Assessment/Plan - Plan This is a 57-year-old male patient, with a newly diagnosed metastatic prostate cancer. He had a CT-guided right ilium bone marrow biopsy with pathology consistent with metastatic prostate adenocarcinoma and bone marrow biopsy with features consistent with marrow involvement of metastatic prostate adenocarcinoma. He presented this admission with progressive worsening urinary retention. 1. Urinary retention consult with urology as outpatient.-Rosas catheter is in place. Noted that there is no nerve impingement causing urinary retention. He is cleared from neurosurgery standpoint. 2. Metastatic prostate cancer. Bone only metastatic disease. Repeat PSA pending. Outpatient PSA 150. He has significant amount of pain from bone lesions. He has not had a trial of therapy. Delay in his diagnosis as patient missed appointment for biopsy. He has not been back to oncology clinic to review the biopsy results and plan a course of therapy. The case was discussed with Dr. Mcelroy. Patient is relatively young with the newly diagnosed prostate cancer. He has not proven himself to be castrate resistant. For this reason I recommend anti- androgen therapy and initiate LHRH agonist as an outpatient. We will need to coordinate LHRH agonist as an outpatient. Ultimately he will benefit from first -line therapy with docetaxel. I have discussed with Dr. Mcelroy to defer palliative radiation for now. Radiation would affect his recovery from cytotoxic chemotherapy such as docetaxel. We can sequences therapy to palliate his symptoms. 3. Pain management-continue long-acting narcotic pain medication with breakthrough medication. He has an appointment with pain management and outpatient basis next month. I anticipate his pain to improve with treatment of his prostate cancer. 4. Discharge planning-poor social support. His is in need of neurosurgery for her neck. His is counting on his help. He has problems with paying rent since he has been unable to work. He would like to apply for Social Security. We discussed question of whether he is appropriate for rehab. He has a 13-year-old daughter that will be left alone if his goes to surgery. 5. Basal cell left upper lip. Pending definitive treatment by Dr. Mcelroy.
[2018-07-17] MEDS: diazePAM 5 MG Tablet PO PRN (00:01)
[2018-07-17] MEDS: Sod Chloride 0.9% Inj 1,000 ML IV.CONT SCH ×3 (04:21→21:45)
[2018-07-17] MEDS: Morphine Sulfate 30 MG SR Tablet PO SCH ×3 (06:13→21:45)
--- NOTE | 2018-07-17 10:09 | P.PNIM ---
Subjective Interval history: Patient reports that his pain is better controlled today. He is concerned about his living situations at home. Physical Exam Vital signs: Vital Signs 07/16/18 11:34 07/16/18 17:23 07/16/18 19:00 Temperature 98.3 F 98.2 F Pulse Rate 96 H 77 69 Respiratory Rate 18 18 Blood Pressure 146/110 H 121/77 Pulse Oximetry 97 94 L 07/16/18 20:19 07/16/18 22:37 07/16/18 23:50 Temperature 98.2 F 98.4 F Pulse Rate 78 80 Respiratory Rate 18 18 19 Blood Pressure 131/79 136/88 Pulse Oximetry 96 99 07/17/18 00:30 07/17/18 04:22 07/17/18 06:43 Temperature 98.1 F Pulse Rate 74 Respiratory Rate 18 16 18 Blood Pressure 116/75 Pulse Oximetry 99 07/17/18 08:00 Temperature 98.7 F Pulse Rate 74 Respiratory Rate 21 Blood Pressure 130/89 Pulse Oximetry 98 Intake & Output 07/16/18 07/17/18 07/17/18 18:59 06:59 18:59 Intake Total 1100 / 1100 1600 / 1600 Output Total 1200 / 1200 2100 / 2100 Balance -100 / -100 -500 / -500 Weight 60.5 kg Intake: IV 1100 / 1100 1000 / 1000 NS Inj 1,000 ML @ 100 mls/hr IV 1000 / 1000 1000 / 1000 .CONT .Q10H [facility] Rx#:[id number] Rocephin Inj 1,000 MG In NS Inj 100 / 100 100 ML @ 200 mls/hr IV.SIG Q24H [facility] Rx#:[id number] Oral 600 / 600 Output: Urine 1200 / 1200 500 / 500 Urine Amount (Catheter) 1600 / 1600 Indwelling Urethral Catheter 1600 / 1600 Other: Date of Last Bowel Movement 07/12/18 07/16/18 Narrative: GENERAL: Patient appears older than stated age CARDIOVASCULAR: Regular rate and rhythm without murmurs, gallops, or rubs. RESPIRATORY: Breath sounds equal bilaterally. No accessory muscle use. GASTROINTESTINAL: Abdomen soft, non-tender, nondistended. MUSCULOSKELETAL: No cyanosis, or edema. dust box tender to palpation in the lumbar area. SKIN: Warm and dry. - Urinary Catheter Management Indwelling Urethral Catheter Cath placed during this visit: no Reason for continuing: Chronic Urinary Retention Results - Labs CBC & Chem 7: 08/19/18 07:40 07/15/18 07:40 - Imaging Impressions Bone Scan Nuclear Medicine 07/16/18 00:00 CONCLUSION: 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 Fracture of the posterior left ilium which may reflect insufficiency fracture. Assessment and Plan - Assessment (1) Intractable back pain Code(s): M54.9 - Dorsalgia, unspecified Status: Acute (2) Prostate cancer Code(s): C61 - Malignant neoplasm of prostate Status: Acute (3) UTI (urinary tract infection) Code(s): N39.0 - Urinary tract infection, site not specified Status: Acute - Plan 57-year-old male admitted secondary to severe lower back pain related to cancer Metastatic prostate cancer Metastatic disease to sacral, lumbar and thoracic spine Intractable back pain, secondary to cancer No option/indication for neurosurgical intervention in this setting Pain control the patient's primary option Continue oxycodone and MS Contin. Oncology recommend outpatient chemotherapy to be followed by radiation therapy. Pain is improving. Abnormal urinalysis: Patient empirically treated with Rocephin. Urine cultures negative. Discontinue antibiotics Tobacco abuse: Patient counseled to quit. Nicotine patch DVT prophylaxis SCDs Discharge Planning: Plan to DC soon. CM aware of his living situations.
--- NOTE | 2018-07-17 10:28 | P.PNONC ---
Subjective Interval history: Patient resting comfortably in bed. He reports his pain is well controlled at this time. He is concerned about losing his home. He has requested case management to speak with him and his today. Objective Vital Signs/Intake & Output: Vital Signs 07/16/18 11:34 07/16/18 17:23 07/16/18 19:00 Temperature 98.3 F 98.2 F Pulse Rate 96 H 77 69 Respiratory Rate 18 18 Blood Pressure 146/110 H 121/77 Pulse Oximetry 97 94 L 07/16/18 20:19 07/16/18 22:37 07/16/18 23:50 Temperature 98.2 F 98.4 F Pulse Rate 78 80 Respiratory Rate 18 18 19 Blood Pressure 131/79 136/88 Pulse Oximetry 96 99 07/17/18 00:30 07/17/18 04:22 07/17/18 06:43 Temperature 98.1 F Pulse Rate 74 Respiratory Rate 18 16 18 Blood Pressure 116/75 Pulse Oximetry 99 07/17/18 08:00 Temperature 98.7 F Pulse Rate 74 Respiratory Rate 21 Blood Pressure 130/89 Pulse Oximetry 98 Intake & Output 07/16/18 07/17/18 07/17/18 18:59 06:59 18:59 Intake Total 1100 / 1100 1600 / 1600 Output Total 1200 / 1200 2100 / 2100 Balance -100 / -100 -500 / -500 Weight 60.5 kg Intake: IV 1100 / 1100 1000 / 1000 NS Inj 1,000 ML @ 100 mls/hr IV 1000 / 1000 1000 / 1000 .CONT .Q10H [facility] Rx#:[id number] Rocephin Inj 1,000 MG In NS Inj 100 / 100 100 ML @ 200 mls/hr IV.SIG Q24H [facility] Rx#:[id number] Oral 600 / 600 Output: Urine 1200 / 1200 500 / 500 Urine Amount (Catheter) 1600 / 1600 Indwelling Urethral Catheter 1600 / 1600 Other: Date of Last Bowel Movement 07/12/18 07/16/18 Result Diagrams: 07/15/18 07:40 07/15/18 07:40 Culture Results: Microbiology 07/13/18 23:50 Urine Culture - Final Clean Catch Urine No growth in 48 hours Imaging Studies: Impressions Bone Scan Nuclear Medicine 07/16/18 00:00 CONCLUSION: 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 Fracture of the posterior left ilium which may reflect insufficiency fracture. Medications: Active Medications Generic Name Dose Route Start Last Admin Trade Name Freq PRN Reason Stop Dose Admin Bicalutamide 50 mg 07/15/18 09:00 07/16/18 16:49 Casodex PO Not Given DAILY [facility] Diazepam 5 mg 07/14/18 01:58 07/17/18 00:01 Valium PO 5 mg Q8H PRN Administration MUSCLE SPASM Gabapentin 900 mg 07/14/18 09:00 07/16/18 17:58 Neurontin PO 900 mg TID [facility] Administration Hydromorphone HCl 1 mg 07/14/18 01:27 07/15/18 09:15 Dilaudid Pf Inj IV.PUSH 1 mg Q4H PRN Administration BREAKTHROUGH PAIN Sodium Chloride 1,000 mls @ 100 mls/hr 07/14/18 01:30 07/17/18 04:21 Ns Inj IV.CONT 100 mls/hr .Q10H [facility] Administration Lactulose 30 ml 07/14/18 01:29 07/16/18 10:14 Lactulose Liq PO 30 ml DAILY PRN Administration SEVERE CONSITIPATION Morphine Sulfate 30 mg 07/15/18 14:00 07/17/18 06:13 Oramorph Sr PO 30 mg Q8HR [facility] Administration Nicotine 1 patch 07/15/18 09:00 07/16/18 09:55 Habitrol 14 Mg Patch.24 Hr T-DERMAL 1 patch DAILY [facility] Administration Oxycodone HCl 10 mg 07/15/18 11:51 07/17/18 00:01 Roxicodone PO 10 mg Q4H PRN Administration Pain 3 to 6 Oxycodone HCl 15 mg 07/15/18 11:51 07/16/18 17:59 Roxicodone PO 15 mg Q4H PRN Administration Pain 7 to 10 Pantoprazole Sodium 40 mg 07/16/18 20:15 07/16/18 20:21 Protonix PO 40 mg DAILY [facility] Administration Patch Removal 1 each 07/15/18 09:00 07/16/18 16:50 Remove Old Patch T-DERMAL 1 each DAILY [facility] Administration Phenazopyridine HCl 200 mg 07/16/18 18:00 07/16/18 17:59 Pyridium PO 200 mg TID [facility] Administration Senna/Docusate Sodium 1 tab 07/14/18 09:00 07/16/18 20:21 Destinee-Colace PO 1 tab BID [facility] Administration Sodium Chloride 2 ml 07/13/18 21:08 07/14/18 19:38 Ns Flush IV.FLUSH 2 ml PRN PRN Administration FLUSH AFTER USING IV ACCESS Temazepam 15 mg 07/14/18 01:29 07/14/18 02:40 Restoril PO 15 mg HS PRN Administration INSOMNIA Objective Remarks: GENERAL: Thin, frail middle-aged male patient, in no distress. SKIN: Warm and dry. Band-Aid to left cheek. HEAD: Normocephalic. EYES: No scleral icterus. No injection or drainage. NECK: Supple, trachea midline. CARDIOVASCULAR: Regular rate and rhythm without murmurs. RESPIRATORY: Breath sounds clear, equal bilaterally. Nonlabored. GASTROINTESTINAL: Abdomen firm, nondistended. +BS. Urinary Rosas catheter in place, draining red tinged/orange urine. EXTREMITIES: No cyanosis, or edema. MUSCULOSKELETAL: Adequate muscle tone. NEUROLOGICAL: No obvious focal deficit. Awake, alert, and oriented x3. PSYCHIATRIC: Appropriate mood and affect; insight and judgment normal.. Assessment/Plan - Plan This is a 57-year-old male patient, with a newly diagnosed metastatic prostate cancer. He had a CT-guided right ilium bone marrow biopsy with pathology consistent with metastatic prostate adenocarcinoma and bone marrow biopsy with features consistent with marrow involvement of metastatic prostate adenocarcinoma. He presented this admission with progressive worsening urinary retention. 1. Urinary retention consult with urology as outpatient.-Rosas catheter is in place. Patient cleared from neurosurgical standpoint. 2. Metastatic prostate cancer. Outpatient PSA 150. Bone only metastatic disease. PSA pending. Paliative radiation deferred at this time, Radiation would affect his recovery from cytotoxic chemotherapy, this was discussed between Dr. Mcelroy and Dr Cowart. Plan for anti-androgen therapy and LHRH agonist as an outpatient and first-line therapy with docetaxel. 3. Pain management-continue long-acting narcotic pain medication with breakthrough medication. Appointment with pain management as outpatient. 4. Basal cell left upper lip. Pending definitive treatment by Dr. Mcelroy. 5. A consult has been placed with case management to discuss poor social support and possibly applying for Social Security. 6. [facility] a [facility]. - Attending Statement The exam, history, and the medical decision-making described in the above note were completed with the assistance of the mid-level provider. I reviewed and agree with the findings presented. I attest that I had a [id number] encounter with the patient on the same day, and personally performed and documented my assessment and findings in the medical record. Feels better. Looks well-groomed today. Tolerating Casodex. Okay for discharge from oncology standpoint with follow-up in oncology clinic the following day. His appointment for oncology on 07/18/18 will be rescheduled after his discharge. Prior authorization for Lupron and docetaxel are requested. Anticipate starting patient on ADT and docetaxel for poor risk disease, i.e. multiple bone lesions greater than 4, as outpatient. Patient has urology appointment scheduled for July 25, 2018. He will need supplies and home care follow-up for his indwelling Rosas. Anticipate to manage his pain through oncology until his appointment with pain specialist next month. Patient and his are waiting decision from [facility] however he prefers to go home despite the problems at home. manager consumer insights to explore safe home discharge in light of unfriendly landlord, home situation and support.
[2018-07-17] MEDS: Gabapentin 300 MG Capsule PO SCH ×3 (10:34→17:14)
[2018-07-17] MEDS: Senna/Docusate Sodium 8.6/50 MG Tablet PO SCH ×2 (10:35→20:24)
[2018-07-18] MEDS: Morphine Sulfate 30 MG SR Tablet PO SCH ×3 (06:11→21:57)
[2018-07-18] MEDS: Sod Chloride 0.9% Inj 1,000 ML IV.CONT SCH ×3 (06:12→10:47)
[2018-07-18] MEDS: Senna/Docusate Sodium 8.6/50 MG Tablet PO SCH (10:37)
[2018-07-18] MEDS: Gabapentin 300 MG Capsule PO SCH ×3 (10:37→21:57)
[2018-07-18] MEDS: HYDROmorphone PF Inj 2 MG/ML Vial IV.PUSH PRN ×2 (10:53→21:53)
--- NOTE | 2018-07-18 13:30 | P.DCO ---
- Physical Therapy Order: Evaluate and treat, Strength and gait training - Home Health Nursing Order: Medical education, Signs/symptoms of disease process - Certification I have seen patient Abhijit Craig on 07/18/18. My clinical findings support the need for the requested home health care services because: Limited mobility due to disease progression, High risk of falls I certify that my clinical findings support that this patient is homebound because: Unsteady gait/balance
--- NOTE | 2018-07-18 13:30 | P.DS ---
Date of admission: 07/15/18 13:10 Primary care physician: PROVIDER NON STAFF Brief History from admission: HPI from the admitting physician: 57-year-old male with a PMH of Prostate CA and Peripheral Neuropathy who presented to the ER w/ complaints of severe back pain. States pain has been ongoing for several months, now more severe over the last 2-3 days in addition to urinary retention. Was seen at 2 days ago for urinary retention, s/p Rosas placement and was d/c'd home. Follows w/ Dr. De Jesus, PSA 150, MRI w/ abnormal marrow signal left posterior iliac wing and sacrum suspicious for metastatic disease, CT Abd/Pelvis 06/21/18 w/ progression to right medial acetabulum, left sacrum, coccyx and portions of posterior iliac wing. S/p Bone Marrow and Ilial Biopsy 07/05/18, Pathology Report showing metastatic prostate adenocarcinoma. On arrival, BP 127/75, HR 93, O2 sat 97% on RA, Afebrile. CBC unremarkable. INR 1.0. Chemistry essentially unremarkable. UA positive for UTI. MRI L-spine with progression of bone lesions including lesions at bilateral iliac bones, T12, L5, S1 and S2 and multiple levels of disc protrusion. Dr. Cisneros consulted, recommended further eval w/ MRI C/T-Spine. Update on the day of discharge: Patient reports he is feeling better. States his pain is controlled. He states his landlord we will give him more time in order for him to find another place to leave. He wants to go home. DS: Diagnosis - Discharge Diagnosis (1) Bony metastasis Status: Acute (2) Intractable back pain Status: Acute (3) Prostate cancer Status: Acute DS: Medications - Discharge Medications Prescriptions: hydrocodone-acetaminophen 1 tab PO Q4-6H PRN #30 tab PRN Reason: Breakthrough Pain, Severe morphine 30 mg PO Q8HR #30 tab DS: Summary Hospital Course: 57-year-old male admitted secondary to severe lower back pain related to cancer. The patient was admitted and treated with narcotics including pain medications. He was evaluated by medical and radiation oncology. He was also seen by neurosurgery. No indication for surgical intervention. The plan is for him to get outpatient chemotherapy with Dr. De Jesus possibly followed by radiation therapy. The patient had an abnormal urinalysis and was empirically treated with Rocephin. Urine cultures were negative. Therefore the antibiotics were discontinued. He will continue with the Orsas and follow-up with urology outpatient. The patient was extensively counseled on tobacco use cessation. He is discharged home with home health to continue rehabilitation efforts. The patient was given a prescription for pain medication for cancer related pain. E-forcse was checked. - Time Spent with Patient Total time spent providing and/or coordinating discharge services: Greater than 30 minutes - Quality: VTE Deep Vein Thrombosis/Pulmonary Embolism Present on Admission: No Exam Vital signs: Vital Signs 07/17/18 15:00 07/17/18 16:00 07/17/18 20:00 Temperature 98.2 F 98.1 F Pulse Rate 72 82 85 Respiratory Rate 20 16 Blood Pressure 138/91 H 128/80 Pulse Oximetry 97 95 07/17/18 23:13 07/18/18 00:00 07/18/18 00:13 Temperature 98.4 F Pulse Rate 91 H 85 Respiratory Rate 16 18 Blood Pressure 109/72 Pulse Oximetry 92 L 07/18/18 04:00 07/18/18 04:26 07/18/18 06:41 Temperature 98.6 F Pulse Rate 81 88 Respiratory Rate 16 17 Blood Pressure 112/74 Pulse Oximetry 95 07/18/18 08:00 07/18/18 12:00 07/18/18 13:05 Temperature 97.6 F 98.2 F Pulse Rate 92 H 112 H Respiratory Rate 18 18 18 Blood Pressure 103/58 L 114/76 Pulse Oximetry 97 96 Intake & Output 07/17/18 07/18/18 07/18/18 18:59 06:59 18:59 Intake Total 1000 / 1000 2240 / 2240 1999 Output Total 1250 / 1250 Balance 1000 / 1000 990 / 990 1999 Weight 60.1 kg Intake: IV 1000 / 1000 1999 NS Inj 1,000 ML @ 100 mls/hr IV 1000 / 1000 1999 .CONT .Q10H [facility] Rx#:[id number] Oral 240 / 240 Output: Urine 950 / 950 Urine Amount (Catheter) 300 / 300 Indwelling Urethral Catheter 300 / 300 Other: Date of Last Bowel Movement 07/17/18 Narrative: GENERAL: Patient appears older than stated age CARDIOVASCULAR: Regular rate and rhythm without murmurs, gallops, or rubs. RESPIRATORY: Breath sounds equal bilaterally. No accessory muscle use. GASTROINTESTINAL: Abdomen soft, non-tender, nondistended. MUSCULOSKELETAL: No cyanosis, or edema. lining machine tender to palpation in the lumbar area. SKIN: Warm and dry. Results Procedures completed during hospitalization: None Labs on day of discharge: Labs from last 24 hours 07/17/18 07/17/18 18:48 12:56 Free PSA Pending Total PSA Pending PSA Free/Total Ratio Pending Nasal Screen MRSA (PCR) Not detected - Impressions ITS Impressions Lumbar Spine MRI 07/13/18 21:08 CONCLUSION: 1. Progression of bone lesions including lesions at the bilateral iliac bones, T12, L5, S1, and S2 levels. Metastatic lesions need to be considered. The patient has underwent bone biopsy. 2. Minimal central disc protrusions at the L3-L4 and L4-L5 levels without significant stenosis. 3. Decreased signal in the disc with the exception of the L5-S1 level consistent with some degree of desiccation. Abdomen/Pelvis CT 07/14/18 00:00 CONCLUSION: 1. Distended stomach. 2. 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 Chest CT 07/14/18 00:00 CONCLUSION: 1. Stable CT examination of the chest. No interval change from 05/22/2018. 2. Specifically, no evidence for metastatic disease in the thorax. 3. Biapical paraseptal emphysema and groundglass opacities in the lower lobes bilaterally likely reflecting atelectasis. Cervical Spine MRI 07/14/18 01:16 CONCLUSION: 1. Multilevel degenerative findings of the cervical spine with mild central canal narrowing at C4-5, C5-6, and C6-7. No evidence of spinal cord deformity. 2. No evidence of metastatic disease in the cervical region. Thoracic Spine MRI 07/14/18 01:16 CONCLUSION: 1. Mild degenerative findings of the thoracic spine. 2. No evidence of metastatic disease in the thoracic spine. 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 Fracture of the posterior left ilium which may reflect insufficiency fracture. Discharge Plan - Discharge Disposition Patient Disposition: W/Home Health Service - Discharge Condition Condition: Stable - Discharge Order Discharge Orders: Discharge Order (Routine); Ordered 08/22/18 Ordered By: Brandy Warren - Physicians Team Primary Care Provider: NON STAFF,PROVIDER Attending Provider: Brandy Warren Other Providers: Josi Wilson ; Kosta Cisneros MD ; [facility], [facility] ; Oswald Esquivel MD ; Winter De Jesus MD
--- NOTE | 2018-07-18 19:50 | P.PNONC ---
Subjective Interval history: He names Darlene Brand [phone] as his healthcare surrogate. The healthcare surrogate was called at the patient's request. The healthcare surrogate is demanding that the patient be treated in the hospital and advises him to refuse discharge. Lengthy discussion with Mr. Craig healthcare surrogate who had many irrelevant questions, by accusatory of the time I round so late in the evening. She gives many examples about herself, her experience, her experience with her son, anecdotes that are irrelevant that to lead into her questions, which essentially is to demand the answer as to how long does the patient have to live with metastatic prostate cancer. Her questions were answered honestly, that clinical trials and first-line therapy survival can range from 43-71 months and sometimes median survival is not reached. Determining factors which we cannot control, is a cancer's response to treatment and Mr Craig tolerability of treatment. Objective Vital Signs/Intake & Output: Vital Signs 07/17/18 20:00 07/17/18 23:13 07/18/18 00:00 Temperature 98.1 F Pulse Rate 85 91 H Respiratory Rate 16 16 Blood Pressure 128/80 Pulse Oximetry 95 07/18/18 00:13 07/18/18 04:00 07/18/18 04:26 Temperature 98.4 F 98.6 F Pulse Rate 85 81 88 Respiratory Rate 18 16 Blood Pressure 109/72 112/74 Pulse Oximetry 92 L 95 07/18/18 06:41 07/18/18 08:00 07/18/18 12:00 Temperature 97.6 F 98.2 F Pulse Rate 92 H 112 H Respiratory Rate 17 18 18 Blood Pressure 103/58 L 114/76 Pulse Oximetry 97 96 07/18/18 13:05 Temperature Pulse Rate Respiratory Rate 18 Blood Pressure Pulse Oximetry Intake & Output 07/18/18 07/18/18 07/19/18 06:59 18:59 06:59 Intake Total 2240 / 2240 1999 Output Total 1250 / 1250 Balance 990 / 990 1999 Weight 60.1 kg Intake: IV 1999 NS Inj 1,000 ML @ 100 mls/hr IV 1999 .CONT .Q10H [facility] Rx#:[id number] Oral 240 / 240 Output: Urine 950 / 950 Urine Amount (Catheter) 300 / 300 Indwelling Urethral Catheter 300 / 300 Other: Date of Last Bowel Movement 07/17/18 Result Diagrams: 07/15/18 07:40 07/15/18 07:40 Laboratory Results: Laboratory Results - last 24 hr 07/17/18 12:56 Nasal Screen MRSA (PCR) Not detected Medications: Active Medications Generic Name Dose Route Start Last Admin Trade Name Freq PRN Reason Stop Dose Admin Bicalutamide 50 mg 07/15/18 09:00 07/18/18 10:39 Casodex PO 50 mg DAILY [facility] Administration Diazepam 5 mg 07/14/18 01:58 07/17/18 00:01 Valium PO 5 mg Q8H PRN Administration MUSCLE SPASM Gabapentin 900 mg 07/14/18 09:00 07/18/18 16:32 Neurontin PO 900 mg TID [facility] Administration Hydromorphone HCl 1 mg 07/14/18 01:27 07/18/18 10:53 Dilaudid Pf Inj IV.PUSH 1 mg Q4H PRN Administration BREAKTHROUGH PAIN Sodium Chloride 1,000 mls @ 100 mls/hr 07/14/18 01:30 07/18/18 10:47 Ns Inj IV.CONT 100 mls/hr .Q10H [facility] Administration Lactulose 30 ml 07/14/18 01:29 07/16/18 10:14 Lactulose Liq PO 30 ml DAILY PRN Administration SEVERE CONSITIPATION Morphine Sulfate 30 mg 07/15/18 14:00 07/18/18 16:36 Oramorph Sr PO 30 mg Q8HR [facility] Administration Nicotine 1 patch 07/15/18 09:00 07/18/18 10:36 Habitrol 14 Mg Patch.24 Hr T-DERMAL 1 patch DAILY [facility] Administration Oxycodone HCl 10 mg 07/15/18 11:51 07/17/18 21:43 Roxicodone PO 10 mg Q4H PRN Administration Pain 3 to 6 Oxycodone HCl 15 mg 07/15/18 11:51 07/16/18 17:59 Roxicodone PO 15 mg Q4H PRN Administration Pain 7 to 10 Pantoprazole Sodium 40 mg 07/16/18 20:15 07/18/18 10:37 Protonix PO 40 mg DAILY [facility] Administration Patch Removal 1 each 07/15/18 09:00 07/18/18 10:40 Remove Old Patch T-DERMAL 1 each DAILY [facility] Administration Phenazopyridine HCl 200 mg 07/16/18 18:00 07/18/18 16:33 Pyridium PO 200 mg TID [facility] Administration Senna/Docusate Sodium 1 tab 07/14/18 09:00 07/18/18 10:37 Destinee-Colace PO 1 tab BID [facility] Administration Sodium Chloride 2 ml 07/13/18 21:08 07/14/18 19:38 Ns Flush IV.FLUSH 2 ml PRN PRN Administration FLUSH AFTER USING IV ACCESS Temazepam 15 mg 07/14/18 01:29 07/14/18 02:40 Restoril PO 15 mg HS PRN Administration INSOMNIA Objective Remarks: GENERAL: Cachectic, well-developed patient. SKIN: Warm and dry. HEAD: Normocephalic. EYES: No scleral icterus. No injection or drainage. NECK: Supple, trachea midline. No JVD or lymphadenopathy. LYMPHATIC: No adenopathy. CARDIOVASCULAR: Regular rate and rhythm without murmurs. RESPIRATORY: Breath sounds equal bilaterally. No accessory muscle use. GASTROINTESTINAL: Abdomen soft, non-tender, nondistended. EXTREMITIES: No cyanosis, or edema. MUSCULOSKELETAL: Adequate muscle tone. NEUROLOGICAL: No obvious focal deficit. Awake, alert, and oriented x3. PSYCHIATRIC: In denial. Assessment/Plan - Plan This is a 57-year-old male patient, with a newly diagnosed metastatic prostate cancer. He had a CT-guided right ilium bone marrow biopsy with pathology consistent with metastatic prostate adenocarcinoma and bone marrow biopsy with features consistent with marrow involvement of metastatic prostate adenocarcinoma. He presented this admission with progressive worsening urinary retention. 1. Urinary retention consult with urology as outpatient.-Rosas catheter is in place. Patient cleared from neurosurgical standpoint. 2. Metastatic prostate cancer. Lengthy discussion with patient and his significant other who he has been with for over 20 years. They have a daughter together who is 13. We discussed anti-androgen therapy. He started Casodex. He is offered to start LHRH agonist on an outpatient basis. We will coordinate his treatment with LHRH agonist as an outpatient. We have discussed at length the option using docetaxel as chemotherapy agent as first-line therapy for high- risk metastatic prostate cancer. This has been shown in several clinical trials to improve survival. This is offered to the patient in outpatient setting. I defer to the patient and his surrogate to consider their options. The above treatment is offered. Ultimately he will decide to proceed with treatment or not. My advice is at a minimum to continue with the anti-androgen therapy. 3. Pain management-continue long-acting narcotic pain medication with breakthrough medication. Appointment with pain management as outpatient. 4. Basal cell left upper lip. Pending definitive treatment by Dr. Mcelroy. 5. I defer to social insurance specialist to assist him with his complex family situation as described by his healthcare surrogate. 6. Case was discussed with primary team. Okay for discharge from oncology standpoint. I will follow the patient on outpatient setting.
[2018-07-19 04:26] LABS: Free PSA/PSA Ratio 0 ratio
== END 2018-07-18 22:40 | disposition home or self-care (01) ==
LOC: NEPD 17:10 → INTOOBSV 07-14 01:20 → NEDA 07-14 01:20 → NEPFCDU 07-14 02:05 → HCIN 07-15 22:14
PROVIDERS: ADMIT Family Medicine; ATTEND Family Medicine
DX: Z85.46 Personal history of malignant neoplasm of prostate; C79.51 Secondary malignant neoplasm of bone; Z86.010 Personal history of colon polyps; C44.319 Basal cell carcinoma of skin of other parts of face; G89.3 Neoplasm related pain (acute) (chronic); N39.0 Urinary tract infection, site not specified; K86.2 Cyst of pancreas; C61 Malignant neoplasm of prostate; M51.16 Intervertebral disc disorders with radiculopathy, lumbar region; F17.210 Nicotine dependence, cigarettes, uncomplicated; G57.90 Unspecified mononeuropathy of unspecified lower limb